=== PATIENT | male | born 1980 | race Caucasian/White ===

== ENCOUNTER 2019-08-31 18:33 | Emergency (ER) | payer BC, SELFPAY | END 2019-08-31 18:45 | disposition left against medical advice (07) | PROVIDERS: Emergency Provider Nurse Practitioner | DX: Z53.21 Procedure and treatment not carried out due to patient leaving prior to being seen by health care provider (principal) | CPT/HCPCS: 99199 ==

== ENCOUNTER 2019-08-31 18:49 | Emergency (ER) | payer BC, SELFPAY ==
[2019-08-31 18:53] VITALS: BP 140/87; PULSE 60; RESP 16; TEMP 36.8; O2SAT 99
--- NOTE | 2019-08-31 19:08 | ED.WOUNDLAC ---
HPI - Wound/Laceration General Chief Complaint: Wound/Laceration Stated Complaint: finger laceration Time Seen by Provider: 08/31/19 19:03 History of Present Illness HPI narrative: He cut off the tip of his right middle finger today while using a mandolin. Difficulty getting the bleeding controlled. Mild pain when covered. Related Data Home Medications Medication Instructions Recorded Confirmed quetiapine 25 mg tablet 25 mg PO DAILY tablet 04/22/19 Allergies Allergy/AdvReac Type Severity Reaction Status Date / Time acetaminophen AdvReac Mild VOMITING Verified 04/22/19 09:21 HYDROCODONE BIT Allergy Mild unknown Uncoded 04/22/19 09:21 Review of Systems Review of Systems: All systems reviewed & are unremarkable except as noted in HPI and below PMFSH Surgical History Surgical History History of mandibular surgery Family History Family History Father Family history of alcoholism Family history of diabetes mellitus in first degree relative Diabetes mellitus Hypertension Grandparent Depression Family history of malignant neoplasm Family history of malignant neoplasm of breast Mother Depression Family history of malignant neoplasm of breast in first degree relative Social History Social History Alcohol intake: current Gender identity (if verbalized by the patient): Male Exam Const: General: healthy appearing, no acute distress and alert Orientation/consciousness: patient oriented x3 HENMT: Head: normal to inspection Resp: Effort & Inspection: normal respiratory effort Cardio: Other: 2+ pulses Neuro: General: patient oriented x3, moves all extremities and CN's II-XI intact bilaterally Speech: normal speech Extrem: Other: 1.5 cm finger tip avulsion of distal right middle finger Course Vital Signs Vital signs: Vital Signs Temperature 36.8 C 08/31/19 18:53 Pulse Rate 60 08/31/19 18:53 Respiratory Rate 16 08/31/19 18:53 Blood Pressure 140/87 08/31/19 18:53 Pulse Oximetry 99 08/31/19 18:53 Temperature 36.8 C 08/31/19 18:53 Pulse Rate 60 08/31/19 18:53 Respiratory Rate 16 08/31/19 18:53 Blood Pressure 140/87 08/31/19 18:53 Pulse Oximetry 99 08/31/19 18:53 MDM - Wound/Laceration MDM Narrative Medical decision making narrative: Mild skin avusion. Reattachment not indicated or attempted. Tetanus up to date Discharge Plan Discharge Clinical Impression: Avulsion of finger tip Qualifiers: Encounter type: initial encounter Qualified Code(s): S61.209A - Unspecified open wound of unspecified finger without damage to nail, initial encounter Patient Disposition: Home, Self-Care Condition: Stable Instructions: Skin Avulsion (ED) Prescriptions: No Action quetiapine [Seroquel] 25 mg tablet 25 mg PO DAILY RF: 0 Interventions: Discharge Disposition Last Done: 08/31/19 19:52 IV Stop Time Documented Last Done: 08/31/19 19:52 Follow-up/Referrals: PHYSICIAN NOT ON STAFF,NONSTAFF [Primary Care Provider] - Discharge Date/Time: 08/31/19 19:54
[2019-08-31] MEDS: CELLULOSE OXIDIZED 2 x 14 INCH 1 PKT XX (19:45)
== END 2019-08-31 19:54 | disposition home or self-care (01) ==
PROVIDERS: Emergency Provider Emergency Medicine
DX: S61.212A Laceration without foreign body of right middle finger without damage to nail, initial encounter (principal); W27.4XXA Contact with kitchen utensil, initial encounter
CPT/HCPCS: 12001; 99282

== ENCOUNTER 2022-12-10 08:33 | Outpatient (CLI) | payer BC, SELFPAY ==
[2022-12-10 18:38] LABS: Alanine Aminotransferase 19 U/L (6-50); Albumin Level 4.4 g/dL (3.5-5.1); Alkaline Phosphatase 78 U/L (38-126); Anion Gap 2 mmol/L (8-16); Aspartate Amino Transferase 27 U/L (17-59); Blood Urea Nitrogen 9 mg/dL (9-20); Carbon Dioxide 31 mmol/L (22-30); Chloride 104 mmol/L (98-107); Cholesterol 230 mg/dL (0-200); Estimated Glomerular Filt Rate > 60; Glucose 104 mg/dL (65-110); HDL Direct 60 mg/dL; Potassium 4.1 mmol/L (3.4-5.0); Sodium 137 mmol/L (137-145); Triglycerides 117 mg/dL (<150)
[2022-12-10 18:49] LABS: LDL Cholesterol Direct 123 mg/dL
== END 2022-12-10 08:34 | disposition home or self-care (01) ==
LOC: ANHGOSHLAB 08:35
PROVIDERS: PCP Family Medicine; Visit Provider Family Medicine
DX: E78.5 Hyperlipidemia, unspecified (principal); E66.9 Obesity, unspecified; Z79.899 Other long term (current) drug therapy
CPT/HCPCS: 36415; 80053; 80061; 84443

== ENCOUNTER → 2023-04-09 12:27 | Outpatient (CLI) | payer BC, SELFPAY ==
--- NOTE | ~2023-04-09 | MR_ITS ---
EXAMINATION: MR brain/brain stem wo/w con DATE: 04/09/2023 13:15 INDICATION: Mass of brain. TECHNIQUE: Magnetic resonance imaging (MRI) of the brain and brainstem was performed without and with 20 mL MultiHance intravenous contrast. COMPARISON: None. FINDINGS: There is no intracranial hemorrhage, acute infarction, or abnormal intracranial mass lesion . The ventricles are normal in size. The orbits are normal. The paranasal sinuses are clear. The mast oid air cells are normal. IMPRESSION: 1. Normal brain. Reviewed, dictated and finalized at location E. MACIST MANAGER IMPRESSION: 1. Normal brain.
== END ==
PROVIDERS: PCP Family Medicine; Visit Provider Family Medicine
DX: R22.0 Localized swelling, mass and lump, head (principal)
CPT/HCPCS: 70553; A9577

== ENCOUNTER → 2023-05-14 11:46 | Outpatient (CLI) | payer BC, SELFPAY ==
--- NOTE | ~2023-05-14 | XR_ITS ---
Right Knee Technique: AP, lateral, and sunrise views were obtained. Clinical History: Medial pain Findings: There is a probable very small osseous avulsion fragment at the medial aspect of the knee, possibly related to the MCL origin. No other fracture seen. Joint spaces are preserved without degene rative or erosive change. Soft tissues are unremarkable. No joint effusion is seen. Impression: Probable small avulsion fracture the medial aspect of the knee, presumably most likely related to the MCL origin. Reviewed, dictated and finalized at location M. CAD Impression: Probable small avulsion fracture the medial aspect of the knee, presumably most likely related to the MCL origin.
== END ==
PROVIDERS: PCP Nurse Practitioner; Visit Provider Nurse Practitioner
DX: M25.561 Pain in right knee (principal)
CPT/HCPCS: 73564

== ENCOUNTER 2023-07-29 10:15 | Outpatient (CLI) | payer BC, SELFPAY ==
[2023-07-29 14:32] LABS: Alanine Aminotransferase 29 U/L (6-50); Albumin Level 4.6 g/dL (3.5-5.1); Alkaline Phosphatase 89 U/L (38-126); Anion Gap 7 mmol/L (4-12); Aspartate Amino Transferase 34 U/L (17-59); Bilirubin,Total 0.8 mg/dL (0.2-1.3); Blood Urea Nitrogen 12 mg/dL (9-20); Calcium 9.5 mg/dL (8.4-10.2); Carbon Dioxide 28 mmol/L (22-30); Chloride 102 mmol/L (98-107); Cholesterol 200 mg/dL (0-200); Estimated Glomerular Filt Rate > 60; Glucose 87 mg/dL (65-110); HDL Direct 62 mg/dL; Potassium 4.5 mmol/L (3.4-5.0); Sodium 137 mmol/L (137-145); Triglycerides 120 mg/dL (<150)
[2023-07-29 14:43] LABS: LDL Cholesterol Direct 110 mg/dL
== END 2023-07-29 10:16 | disposition home or self-care (01) ==
LOC: ANHGOSHLAB 10:17
PROVIDERS: PCP Family Medicine; Visit Provider Family Medicine
DX: E78.5 Hyperlipidemia, unspecified (principal); E66.9 Obesity, unspecified; Z79.899 Other long term (current) drug therapy
CPT/HCPCS: 36415; 80053; 80061; 84443

== ENCOUNTER 2023-12-27 08:53 | Outpatient (CLI) | payer BC, SELFPAY ==
[2023-12-27 16:34] LABS: Hematocrit 48.6 % (42.0-52.0); Hemoglobin 16.8 g/dL (14.0-18.0); Mean Corpuscular HGB Conc 34.6 g/dl (32-36); Mean Corpuscular Hemoglobin 32.2 pg (26-34); Mean Corpuscular Volume 93.3 fl (80-100); Mean Platelet Volume 10.7 fl (7.4-10.4); Platelet Count Result 251 k/mm3 (150-375); Red Blood Count 5.21 M/mm3 (4.6-6.20); Red Cell Distribution Width 11.4 % (11.5-14.5); White Blood Count 6.1 K/mm3 (4.5-10.0)
[2023-12-27 16:37] LABS: Alanine Aminotransferase 26 U/L (6-50); Albumin Level 4.3 g/dL (3.5-5.1); Alkaline Phosphatase 72 U/L (38-126); Anion Gap 5 mmol/L (4-12); Aspartate Amino Transferase 51 U/L (17-59); Blood Urea Nitrogen 10 mg/dL (9-20); Calcium 9.5 mg/dL (8.4-10.2); Carbon Dioxide 32 mmol/L (22-30); Chloride 100 mmol/L (98-107); Cholesterol 230 mg/dL (0-200); Estimated Glomerular Filt Rate > 60; Glucose 99 mg/dL (65-110); HDL Direct 59 mg/dL; Potassium 4.5 mmol/L (3.4-5.0); Sodium 137 mmol/L (137-145); Triglycerides 84 mg/dL (<150)
[2023-12-27 17:04] LABS: LDL Cholesterol Direct 128 mg/dL
== END 2023-12-27 08:54 | disposition home or self-care (01) ==
LOC: ANHGOSHLAB 08:55
PROVIDERS: PCP Family Medicine; Visit Provider Family Medicine
DX: E78.5 Hyperlipidemia, unspecified (principal); F41.9 Anxiety disorder, unspecified; Z79.899 Other long term (current) drug therapy; E66.9 Obesity, unspecified; Z12.5 Encounter for screening for malignant neoplasm of prostate
CPT/HCPCS: 36415; 80053; 80061; 84153; 84443; 85027; G0103

== ENCOUNTER 2024-03-16 18:18 | Emergency (ER) | payer BC, SELFPAY ==
--- NOTE | ~2024-03-16 | CT_ITS ---
CT soft tissue neck w con Ordering provider: Brittany Mcdonough PA-C History: 43 years Male with . R NECK/PAROTID swelling . Comparison: None. Technique: CT soft tissues neck was performed with contrast. . Automated exposure control and iterat rico reconstruction technique were employed. The dose-length product was 609.88 mGy-cm. 75 mL Omnipaqu e 350 was given IV. Findings: LOWER HEAD: The visualized brain parenchyma, optic globes/orbits and mastoids are normal. The visua lized paranasal sinuses are well aerated. SALIVARY GLANDS: Normal. THYROID: Normal. SUPRAHYOID DEEP SPACES: Cystic mass is seen just lateral to the right submandibular gland and between the gland and the sternomastoid muscle which measures 3.3 x 2.7 cm most likely necrotic lymph node. Further evaluation advised. Enlarged lymph nodes in the parapharyngeal spaces with the largest measur es 1.1 cm on the left side. CAROTID ARTERIES: Normal. JUGULAR VEINS: Normal. TONSILS: Normal. ORAL CAVITY: Partially obscured by dental amalgam but normal as visualized. PHARYNX, LARYNX AND TRACHEA: Patent and normal. No prevertebral soft tissue swelling. SUPERFICIAL SOFT TISSUES: Fat stranding is seen in the right side of the neck. THORACIC INLET/VISUALIZED UPPER CHEST: Normal. SKELETAL: Normal. IMPRESSION: Cystic mass in the right side of the of the neck between the right submandibular gland and right ster nomastoid muscle suggestive of an abscess. Further evaluation advised. Reviewed, dictated and finalized at location A. N PIPE VOICER IMPRESSION: Cystic mass in the right side of the of the neck between the right submandibula r gland and right sternomastoid muscle suggestive of an abscess. Further evalua tion advised.
[2024-03-16 18:21] VITALS: BP 137/100; PULSE 111; RESP 18; TEMP 37.1; O2SAT 97
--- NOTE | 2024-03-16 18:24 | ED.SKABFB ---
HPI - Skin/Abscess/Foreign Bdy General Chief complaint: Skin/Abscess/Foreign Body Stated complaint: neck mass Time Seen by Provider: 03/16/24 18:20 Focused HPI: Patient is a 43-year-old male who presents the ED with report of right-sided jaw swelling. Patient has history of prognathic jaw surgery for underbite around 20 years ago. Over the past 1 week, he has had swelling/pain/firmness in his R facial jaw and under jaw. States it became red over the past few days, with the redness radiating down his chest. Reports similar episode previously which he states required abx/drainage. He has an appointment with an ENT specialist on 03/23, but states the redness concerned him today. Denies difficulty breathing or swallowing. Reports pain with chewing, decreased appetite, subjective fevers. Denies dental pain, drainage in mouth. GENERAL: Well-appearing, well-nourished, and in no acute distress. HEAD: Normocephalic, atraumatic. FACE/ENT/NECK: Large area of induration, erythema, focal tenderness to palpation along R facial cheek and submandibular region, erythema tracking down anterior chest. Warm to palpation. No evidence of focal fluctuance on along upper lower right-sided gum lines. No significant tenderness along gumline months. CHEST: Clear to auscultation. ?No respiratory distress. HEART: Regular rate and rhythm.? NEURO: ?Alert and oriented x3. Patient screened in triage and initial orders placed.? ?Additional care and disposition to be based upon?diagnostic testing and treatment. Source: patient Mode of arrival: ambulatory Limitations: no limitations Related Data Home Medications ?Medication ?Instructions ?Recorded ?Confirmed ?Last Taken ?Type risperidone 3 mg tablet 3 mg PO DAILY 06/04/22 12/30/23 Unknown History vilazodone 40 mg tablet 40 mg PO DAILY 06/04/22 12/30/23 Unknown History atomoxetine 80 mg capsule mg PO 08/08/23 12/30/23 Unknown History Allergies Allergy/AdvReac Type Severity Reaction Status Date / Time HYDROCODONE BIT Allergy Mild unknown Uncoded 12/30/23 10:55 PMFSH Past Medical History Medical History Anxiety Surgical History Surgical History History of mandibular surgery 2003 Family History Family History Father Family history of alcoholism Family history of diabetes mellitus in first degree relative Diabetes mellitus Hypertension Grandparent Depression Family history of malignant neoplasm Family history of malignant neoplasm of breast Mother Depression Family history of malignant neoplasm of breast in first degree relative Social History Social History Smoking status: Former smoker Alcohol intake: current Drinks per week: 6 Substance use: current Substance use type: marijuana Other substance usage details: smoke once every couple weeks Lack of Transportation: No Lack of Food: Never True Current Housing: I Have Housing Concerned About Future Housing: No Difficulty Paying Gas/Electric Bills: No Difficulty Paying for Meds: No Currently Unemployed: No Education: Master's Degree or Higher Difficulty w/ Childcare or Family Care: No Gender identity (if verbalized by the patient): Male Course Vital Signs Vital signs: Vital Signs Temperature 98.8 F 03/16/24 18:21 Pulse Rate 111 H 03/16/24 18:21 Respiratory Rate 18 03/16/24 18:21 Blood Pressure 137/100 H 03/16/24 18:21 Pulse Oximetry 97 03/16/24 18:21 Oxygen Delivery Room Air 03/16/24 18:21 Temperature 98.8 F 03/16/24 18:21 Pulse Rate 82 03/17/24 05:39 Respiratory Rate 15 03/17/24 05:39 Blood Pressure 128/84 03/17/24 05:39 Pulse Oximetry 96 03/17/24 05:39 Oxygen Delivery Room Air 03/16/24 18:21 MDM - Skin/Abscess/Foreign Bdy MDM Narrative Medical decision making narrative: MSE by MANUEL in triage. Lab Data 03/16/24 19:10 03/16/24 19:10 Labs: Lab Results 03/16/24 Range/Units 19:10 WBC 11.0 H (4.5-10.0) K/mm3 RBC 4.82 (4.6-6.20) M/mm3 Hgb 15.0 (14.0-18.0) g/dL Hct 42.4 (42.0-52.0) % MCV 88.0 (80-100) fl MCH 31.1 (26-34) pg MCHC 35.4 (32-36) g/dl RDW 12.0 (11.5-14.5) % Plt Count 230 (150-375) k/mm3 MPV 9.9 (7.4-10.4) fl Immature Gran % (Auto) 0.4 (0-0.5) % Neut % (Auto) 71.2 (45.5-73.1) % Lymph % (Auto) 17.7 L (18.3-44.2) % [place] % (Auto) 10.3 H (2.6-8.5) % Eos % (Auto) 0.2 (0-4.4) % Baso % (Auto) 0.2 (0.2-1.2) % Lymph # (Auto) 1.95 (0.9-3.2) K/mm3 [place] # (Auto) 1.1 H (0.1-0.6) K/mm3 Eos # (Auto) 0.0 (0-0.3) K/mm3 Baso # (Auto) 0.0 (0.0-0.1) K/mm3 Abs Immat Gran (auto) 0.04 H (0.00-0.031) K/mm3 Absolute Neuts (auto) 7.9 H (1.3-6.7) K/mm3 Absolute Nucleated RBC 0.000 (0.0-0.012) K/mm3 Nucleated RBC % 0.0 (0.0-0.2) % Sodium 132 L (137-145) mmol/L Potassium 4.1 (3.4-5.0) mmol/L Chloride 100 (98-107) mmol/L Carbon Dioxide 29 (22-30) mmol/L Anion Gap 3 L (4-12) mmol/L BUN 11 (9-20) mg/dL Creatinine 1.10 (0.7-1.3) mg/dL Estim Creat Clear Calc 104 ml/min Estimated GFR > 60 (59 - ) Glucose 111 H (65-110) mg/dL Lactic Acid 0.6 L (0.7-2.0) mmol/L Calcium 9.1 (8.4-10.2) mg/dL Total Bilirubin 1.1 (0.2-1.3) mg/dL AST 20 (17-59) U/L ALT 15 (6-50) U/L Alkaline Phosphatase 82 (38-126) U/L C-Reactive Protein 4.2 H (<1.0) mg/dL Total Protein 8.0 (6.3-8.2) g/dL Albumin 4.3 (3.5-5.1) g/dL Discharge Plan Discharge Clinical Impression: Submandibular abscess Patient Disposition: Acute Care Hospital Condition: Serious Patient Language: [place] Prescriptions: No Action vilazodone 40 mg tablet 40 mg PO DAILY Rx Instructions: must administer with a meal/food risperidone 3 mg tablet 3 mg PO DAILY atomoxetine 80 mg capsule PO Follow-up/Referrals: Angelica Jaramillo DO [Primary Care Provider] -
[2024-03-16 19:18] LABS: Basophils Percent Auto 0.2 % (0.2-1.2); Eosinophils Percent Auto 0.2 % (0-4.4); Hematocrit 42.4 % (42.0-52.0); Immature Granulocyte Absolute 0.04 K/mm3 (0.00-0.031); Immature Granulocyte Percent A 0.4 % (0-0.5); Lymphocytes Absolute Auto 1.95 K/mm3 (0.9-3.2); Lymphocytes Percent Auto 17.7 % (18.3-44.2); Mean Corpuscular HGB Conc 35.4 g/dl (32-36); Mean Corpuscular Hemoglobin 31.1 pg (26-34); Mean Platelet Volume 9.9 fl (7.4-10.4); Monocytes Absolute Auto 1.1 K/mm3 (0.1-0.6); Monocytes Percent Auto 10.3 % (2.6-8.5); Neutrophils Absolute Auto 7.9 K/mm3 (1.3-6.7); Neutrophils Percent Auto 71.2 % (45.5-73.1); Platelet Count Result 230 k/mm3 (150-375); Red Blood Count 4.82 M/mm3 (4.6-6.20)
[2024-03-16 19:33] LABS: Lactic Acid Reflex 0.6 mmol/L (0.7-2.0)
[2024-03-16 19:36] LABS: Alanine Aminotransferase 15 U/L (6-50); Albumin Level 4.3 g/dL (3.5-5.1); Alkaline Phosphatase 82 U/L (38-126); Anion Gap 3 mmol/L (4-12); Aspartate Amino Transferase 20 U/L (17-59); Bilirubin,Total 1.1 mg/dL (0.2-1.3); Blood Urea Nitrogen 11 mg/dL (9-20); CRP 4.2 mg/dL (<1.0); Calcium 9.1 mg/dL (8.4-10.2); Carbon Dioxide 29 mmol/L (22-30); Chloride 100 mmol/L (98-107); Estimated CRCL calculation 104 ml/min; Estimated Glomerular Filt Rate > 60; Glucose 111 mg/dL (65-110); Potassium 4.1 mmol/L (3.4-5.0); Sodium 132 mmol/L (137-145)
[2024-03-17] MEDS: AMPICILLIN SULB 3 GM/NS 100 ML 3 GM/100 ML VIAL IVPB (04:06)
[2024-03-17 04:08] VITALS: BP 136/92; PULSE 83; RESP 15; O2SAT 95
--- NOTE | 2024-03-17 05:21 | ED.GENADULT ---
HPI - General Adult General Chief complaint: Skin/Abscess/Foreign Body Stated complaint: neck mass Time Seen by Provider: 03/16/24 18:20 Source: patient Mode of arrival: ambulatory Limitations: no limitations Related Data Home Medications ?Medication ?Instructions ?Recorded ?Confirmed ?Last Taken ?Type risperidone 3 mg tablet 3 mg PO DAILY 06/04/22 12/30/23 Unknown History vilazodone 40 mg tablet 40 mg PO DAILY 06/04/22 12/30/23 Unknown History atomoxetine 80 mg capsule mg PO 08/08/23 12/30/23 Unknown History Allergies Allergy/AdvReac Type Severity Reaction Status Date / Time HYDROCODONE BIT Allergy Mild unknown Uncoded 12/30/23 10:55 PMFSH Past Medical History Medical History Anxiety Surgical History Surgical History History of mandibular surgery 2004 Family History Family History Father Family history of alcoholism Family history of diabetes mellitus in first degree relative Diabetes mellitus Hypertension Grandparent Depression Family history of malignant neoplasm Family history of malignant neoplasm of breast Mother Depression Family history of malignant neoplasm of breast in first degree relative Social History Social History Smoking status: Former smoker Alcohol intake: current Drinks per week: 6 Substance use: current Substance use type: marijuana Other substance usage details: smoke once every couple weeks Lack of Transportation: No Lack of Food: Never True Current Housing: I Have Housing Concerned About Future Housing: No Difficulty Paying Gas/Electric Bills: No Difficulty Paying for Meds: No Currently Unemployed: No Education: Master's Degree or Higher Difficulty w/ Childcare or Family Care: No Gender identity (if verbalized by the patient): Male Exam Narrative: APPEARANCE: No apparent distress. Head: atraumatic. EYES: EOMI, NOSE: Atraumatic NECK: area swelling tenderness and fluctuance over the right neck just underneath the jaw line, no stridor, no difficulty speaking or voice changes RESPIRATORY: No increased rate of breathing CARDIOVASCULAR: RRR, ABDOMINAL: Non-distended MUSCULOSKELETAl: No obvious deformities NEURO: Alert. Moving 4/4 extremities SKIN:: Warm, dry. Normal color PSYCHIATRIC: Normal affect Course Vital Signs Vital signs: Vital Signs Temperature 98.8 F 03/16/24 18:21 Pulse Rate 111 H 03/16/24 18:21 Respiratory Rate 18 03/16/24 18:21 Blood Pressure 137/100 H 03/16/24 18:21 Pulse Oximetry 97 03/16/24 18:21 Oxygen Delivery Room Air 03/16/24 18:21 Temperature 98.8 F 03/16/24 18:21 Pulse Rate 83 03/17/24 04:08 Respiratory Rate 15 03/17/24 04:08 Blood Pressure 136/92 H 03/17/24 04:08 Pulse Oximetry 95 03/17/24 04:08 Oxygen Delivery Room Air 03/16/24 18:21 Medical Decision Making MDM Narrative Medical decision making narrative: -Course: 43-year-old male presenting with a large submandibular abscess. Given a dose of ampicillin sulbactam. Case was discussed with Dr. Hudson of the ENT service at [facility]. Patient be transferred to [facility] emergency department via private vehicle. Accepted in the ED by Dr. Khoury. Vital Signs Vital Signs: Vital Signs Temperature 98.8 F 03/16/24 18:21 Pulse Rate 111 H 03/16/24 18:21 Respiratory Rate 18 03/16/24 18:21 Blood Pressure 137/100 H 03/16/24 18:21 Pulse Oximetry 97 03/16/24 18:21 Oxygen Delivery Room Air 03/16/24 18:21 Temperature 98.8 F 03/16/24 18:21 Pulse Rate 83 03/17/24 04:08 Respiratory Rate 15 03/17/24 04:08 Blood Pressure 136/92 H 03/17/24 04:08 Pulse Oximetry 95 03/17/24 04:08 Oxygen Delivery Room Air 03/16/24 18:21 Lab Data 03/16/24 19:10 03/16/24 19:10 Labs: Lab Results 03/16/24 Range/Units 19:10 WBC 11.0 H (4.5-10.0) K/mm3 RBC 4.82 (4.6-6.20) M/mm3 Hgb 15.0 (14.0-18.0) g/dL Hct 42.4 (42.0-52.0) % MCV 88.0 (80-100) fl MCH 31.1 (26-34) pg MCHC 35.4 (32-36) g/dl RDW 12.0 (11.5-14.5) % Plt Count 230 (150-375) k/mm3 MPV 9.9 (7.4-10.4) fl Immature Gran % (Auto) 0.4 (0-0.5) % Neut % (Auto) 71.2 (45.5-73.1) % Lymph % (Auto) 17.7 L (18.3-44.2) % [place] % (Auto) 10.3 H (2.6-8.5) % Eos % (Auto) 0.2 (0-4.4) % Baso % (Auto) 0.2 (0.2-1.2) % Lymph # (Auto) 1.95 (0.9-3.2) K/mm3 [place] # (Auto) 1.1 H (0.1-0.6) K/mm3 Eos # (Auto) 0.0 (0-0.3) K/mm3 Baso # (Auto) 0.0 (0.0-0.1) K/mm3 Abs Immat Gran (auto) 0.04 H (0.00-0.031) K/mm3 Absolute Neuts (auto) 7.9 H (1.3-6.7) K/mm3 Absolute Nucleated RBC 0.000 (0.0-0.012) K/mm3 Nucleated RBC % 0.0 (0.0-0.2) % Sodium 132 L (137-145) mmol/L Potassium 4.1 (3.4-5.0) mmol/L Chloride 100 (98-107) mmol/L Carbon Dioxide 29 (22-30) mmol/L Anion Gap 3 L (4-12) mmol/L BUN 11 (9-20) mg/dL Creatinine 1.10 (0.7-1.3) mg/dL Estim Creat Clear Calc 104 ml/min Estimated GFR > 60 (59 - ) Glucose 111 H (65-110) mg/dL Lactic Acid 0.6 L (0.7-2.0) mmol/L Calcium 9.1 (8.4-10.2) mg/dL Total Bilirubin 1.1 (0.2-1.3) mg/dL AST 20 (17-59) U/L ALT 15 (6-50) U/L Alkaline Phosphatase 82 (38-126) U/L C-Reactive Protein 4.2 H (<1.0) mg/dL Total Protein 8.0 (6.3-8.2) g/dL Albumin 4.3 (3.5-5.1) g/dL Discharge Plan Discharge Clinical Impression: Submandibular abscess Patient Disposition: Acute Care Hospital Condition: Serious Patient Language: [place] Prescriptions: No Action vilazodone 40 mg tablet 40 mg PO DAILY Rx Instructions: must administer with a meal/food risperidone 3 mg tablet 3 mg PO DAILY atomoxetine 80 mg capsule PO Follow-up/Referrals: Angelica Jaramillo DO [Primary Care Provider] -
[2024-03-17 05:39] VITALS: BP 128/84; PULSE 82; RESP 15; O2SAT 96
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
--- OUTSIDE RECORDS SUMMARY | 2024-03-24 03:15 | XMS_ITS ---
Author Organization [facility] [employer] Address [address] [place] [address] Care Team Providers Care [employer] Architect Name Role Phone Angelica Jaramillo DO Primary Care Provider Unavail Whitney Garcia Unavailable [phone] Allergies No Known Allergies REASON FOR VISIT follow up medication management Medications Medication SIG (Take, Route, Frequency, Duration) Notes Start Date End Date Status Concerta 27 MG 1 tablet in the morning Orally Once a day for 30 days 10/04/2023 11/03/2023 Active Meloxicam 15 MG Oral 08/02/2023 Act rico Atomoxetine HCl 80 MG 1 capsule in the morning Oral Once a day for 30 days 08/02/2023 12/03/2023 Active risperiDONE 3 MG 1 tablet at bedtime Oral Once a day for 30 days 08/02/2023 Active Vilazodone HCl 40 MG 1 tablet with food Oral Once a day for 30 days 08/02/2023 Active QUEtiapine Fumarate ER 300 MG Oral 08/02/2023 Not-Taking Social History Tobacco Use: Social History Observation Description Date Details (start date - stop date) Former Smoker NA - NA Sex Assigned At : Social History Observation Description Sex Assigned At Male Tobacco Control (Standard) Question Answer Notes Tobacco use: Former smoker How long has it been since you last smoked? Grea ter than 10 years Section Notes: Social History Substance Use Do you or have you ever smoked tobacco?: Former smoker How much tobacco do you smoke?: None Do you or have you ever used e-cigarettes or vape?: Former user of electronic cigarettes What was the date of your most recent tobacco screening?: 05/27/2023 What is your level of alcohol consumption?: None How many years have you consumed alcohol?: 21 Do you use any illicit or recreational drugs?: No Which illicit or recreational drugs have you used?: Marijuana, Extacy, Opium, Cocaine, Daja Have you used IV drugs?: No What is your level of caffeine consumption?: Heavy Education and Occupation What is the highest grade or level of school you have completed or the highest degree you have received?: Master's degree (e.g., MA, MS, Noemy, 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, 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, 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) Are you currently employed?: Yes 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) Marriage and Sexuality What is your relationship status?: Are you sexually active?: No Do you use protection during sex?: No How many children do you have?: 1 Home and Environment Are there any guns present in your home?: No Advance Directive Do you have an advance directive?: No Do you have a medical power of assistant prosecuting attorney?: No Vital Signs Blood pressure systolic 131 mm Hg 10/04/19 24 Blood pressure diastolic 87 mm Hg 024 Heart Rate 89 /min 10/04/2023 Height 72.00 in 10/04/2023 Weight 255 lbs 10/04/2023 BMI 34.58 kg/m2 10/04/2023 Height-cm 182.88 cm 10/04/2023 Weight-kg 115.67 kg 10/04/2023 Encounters Encounter Location Date Provider Diagnosis [facility] [employer] [place] [address] [address] 10/04/2023 Whitney Bustamante Attention-deficit hyperactivity disorder, combined type F90.2 ; Generalized anxiety disorder F41.1 ; Bipolar disorder, unspecified F31.9 and History of alcohol abuse F10.11 Assessments Encounter Date Diagnosis (ICD Code) Assessment Notes Treatment Notes Treatment Clinical Notes Section Notes 10/04/2023 Attention-deficit hyperactivity disorder, combined type (ICD-10 - F90.2) start concerta 27mg qam decrease caffeine cont atomoxetine 80mg qam-monitor mood stability cont avoid cannabis/alcohol if improvement, may consider decrease atomoxetine or viibryd (discussed in past) to minimize meds reports past stimulants for anxiety/mind blanking, improve social and mood. but states adderall ER did help at work with attention, but didn't like with coffee. focalin was more take before a social event and that helped with social in evening but would be hard to fall asleep and then also a crash after, and not sure if help work/focus as didn't take then. discuss stimulant not generally a social event, evening medication. says it calms mind, think more clearly, able to engage better. adderall was good am and afternoon, more steady but wear off evening. can try an XR formulation for all day see if covers into evening and also help social anxiety. discuss prefer to avoid IR and why.. denied C/I to stimulant (other than past substance/dave tor, denies current ETOH, cannabis, substance; negative uds june). review r/b/se, including mood instability-mo nitor closely for lyric sx, addiction, etc discuss AA and [facility] for support recommend counseling f/u in 1 month, earlier if concerns notes: -BO/AHUJA testing supported ADHD combined dx -Diff: consider if undiagnosed autism may play a role in sx; have discussed 10/04/2023 Generalized anxiety disorder (ICD-10 - F41.1) cont vilazodone 40mg daily, take with food recommend counseling 10/04/2023 Bipolar disorder, unspecified (ICD-10 - F31.9) long-term dx, rule out MDD with substance and/or ADHD cont risperidone 3mg qhs 10/04/2023 History of alcohol abuse (ICD-10 - F10.11) no usehx intermittent problematic userecommend continue to abstain from alcohol 10/04/2023 Other Methylphenidate Extended Release Oral Tablet (METHYLPHENIDATE SUSTAINED-ACTION, OSMOTIC - ORAL) material was published Plan Of Treatment Medication Medication Name Sig Start Date Stop Date Notes Concerta 27 MG 1 tablet in the morn ing Orally Once a day for 30 days 10/04/2023 11/03/2023 Atomoxetine HCl 80 MG 1 capsule in the m orning Oral Once a day for 30 days 08/02/2023 12/03/2023 risperiDONE 3 MG 1 tablet at bedtime Oral Once a day for 30 days 08/02/2023 Vilazodone HCl 40 MG 1 tablet with food Oral Once a day for 30 days 08/02/2023 Treatment Notes Assessment Notes Attention-deficit hyperactiv ity disorder, combined type start concerta 27mg qam decrease caffeine cont atomoxetine 80mg qam-monitor mood stability cont avoid cannabis/alcohol if improvement, may consider decrease atomoxetine or viibryd (discussed in past) to minimize meds Generalized anxiety disorder cont vilazodone 40mg daily, take with food recommend counseling Bipolar disorder, unspecified long-term dx, rule out MDD with substance and/or ADHD cont risperidone 3mg qhs History of alcohol abuse no usehx interm ittent problematic userecommend continue to abstain from alcohol Other Methylphenidate Exte nded Release Oral Tablet (METHYLPHENIDATE SUSTAINED-ACTION, OSMOTIC - ORAL) material was published Next Appt Details Follow Up: 1 month, Reason: Provider Name:Radha engel, 03/27/2024 11:00:00 AM, [address], [facility] [address], [place], [address], Progress Notes * JAMES VILLANUEVA [place]:1 (42 yo M)Acc No.[id number]:10/04/2023 Patient:?[facility] Provider:?TIBURCIO POOLE :1980???Age:42 Y???Sex:Male Giovanny e:10/04/2023 Address:[address] [place], [place] [id number] Pcp:Angelica Jaramillo DO Subjective: * Chief Complaints: * ???1. Follow up medication m anagement. * HPI: ???History of Presenting Problem:? 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 hx alcohol misuse and cannabis. no med change last visit. maybe sexual side effects, had before with seroquel and the switch helped it, but no better or worse lately.? things are good. 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 denies depression, SI. anxiety is good. other than social anxiety, since I used to drink for that so now avoiding friends. in past took the focalin so would amp me up and let me talk to people. but would have headache next day. Sleeping ok, sometimes wake up too early. Denies lyric, psychosis.?Still applying to?other roles at work, to try to get into office instead of home. substance: caffeine high-trying to cut back former smoker ETOH: none since 03/18 cannabis: none since 03/18. ???General Follow Up:? ongoing notes: past meds: seroquel-too tired am;?xanax didn't like;?adderall, focalin Psychotherapy: never done Trauma/abuse hx: denied INITIAL SUBSTANCE USE HX: Caffeine: 4 c coffee in am Cigarette/vape: former smoker ETOH: none since March 18, was every day bottle of wine for the months before that. have hx of off and on issues since age 18. Quit months/years at a time. note: mother and father alcohol hx Cannabis: gave up Mar 19 was daily/multiple times a day/$30/day. smoked age 18- 27 then quit 12 yrs until they legalized it Other drug use: only in 20s, none since: Ecstasy-weekly for a while, Opium, Cocaine, Daja few times/yr Treatment hx: Denied facility tx, went to AA a few times that's it. ADHD-see under ADHD tab Anxiety hx: started around my 30s. used to take focalin for social anxiety/can't talk. My thinks I'm constantly worrying that the worst possible thing will happen. hard to relax. ruminates. can be issue at bedtime but has not been issue since on risperdal and before that seroquel. Panic attacks: denied Depression hx: have had in past, severe. would have an episode 6-8x/yr that would last a few days. now not really with meds. can get mild at times, some helpless, overwhelmed feelings, very spaced out and doesn't last more than a day. I just deal with it. Denied SI, says has never been a problem. when depressed in past can be irritable, restless, lack motivation, helpless, bad about self-like failure. Denied hx of psychiatric hospitalizations, suicide attempts or self-injury. Lyric hx: before meds, would tend to take on a lot of tasks, start a lot of projects. and there was time I didn't have to sleep as much. better self esteem during these times. It will be like a week and then several months back down to normal and then another week up. no cheating, reckless driving, or debt. I get in moods angry, tense for no reason for a few hours. That happens sporadically once or twice a week. -consider if accurate memory of past sx etc, has been on mood stabilizing medication for years-family hx, grandmother-unclear: but consider long-term medication affecting ongoing sx and hx substance use; has family hx and historical dx denied hx of psychosis bipolar, vs ADHD, vs substance, etc. ???Attention deficit / hyperactivity disorder:? ADHD hx/notes: Denied past dx of ADHD. says past stimulant scripts for social anxiety/mind blanking. I avoid going places, seeing friends, don't want to be social. Afraid I'll be a shut in. I hate the awkwardness. With stimulants more up mood, talkative, but not manic. consider if autism-says my thinks I'm on the spectrum-says it constantly? ADHD inattention: endorsed poor ability to give close attention to details;?has difficulty sustaining attention in tasks;?makes careless mistakes at work;?does not listen when spoken to directly;?does not follow through on instructions;?fails to finish work;?has difficulty organizing tasks and activities;?reluctant to engage in tasks that require sustained mental effort;?loses things necessary for tasks or activities;?easily distracted by extraneous stimuli; Hyperactivity:?no excessive talking; does not run/move in inappropriate situations; no difficulty with quiet tasks/activities;?Often fidgets with or taps hands or feet, or squirms in seat.?(when not on bipolar medication);?Often interrupts or intrudes on others (e.g., butts into conversations or games).?Context:?lack of productivity at work;?unnecessary arguments Completed BO/AHUJA testing on 06/27/23, valid, results and self rating support considering dx of ADHD combined hx: reports past stimulants for anxiety/mind blanking (not past ADHD dx), improve social and mood. but states adderall ER did help at work with attention, but didn't like with coffee. focalin was more take before a social event and that helped with social in evening but would be hard to fall asleep and then also a crash after, and not sure if help work/focus as didn't take then. see 07/04/23 note for hx/sx summary. * ROS:?Psychiatric:?Comments?See HPI for details.? * Medical History:?Problems: A ttention deficit hyperactivity disorder, Attention deficit hyperactivity disorder, combined type, Bipolar disorder, Generalized anxiety disorder, History of alcohol abuse, ,. * Surgical History:?Other jaw 04/18/2002. * Hospitalization/Major Diagno stic Procedure:?Denies Past Hospitalization. * Family History:?Father: Alco hol abuse .?Mother: Depressive disorder , Alcohol abuse .?Paternal Grandmother: Bipolar disorder .? * Social History:?Tobacco Use:?Tobacco Control (Standard)?Tobacco use:?Former smoker,?How long has it been since you last smoked??Greater than 10 years.?Migrated Social History:?Migrated Social History: Alcohol Intake: None 05/27/2023,Tobacco Years: Former smoker 05/27/2023. ???Social History Substance Use Do you or have you ever smoked tobacco?: Former smoker How much tobacco do you smoke?: None Do you or have you ever used e-cigarettes or vape?: Former user of electronic cigarettes What was the date of your most recent tobacco screening?: 05/27/2023 What is your level of alcohol consumption?: None How many years have you consumed alcohol?: 21 Do you use any illicit or recreational drugs?: No Which illicit or recreational drugs have you used?: Marijuana, Extacy, Opium, Cocaine, Daja Have you used IV drugs?: No What is your level of caffeine consumption?: Heavy Education and Occupation What is the highest grade or level of school you have completed or the highest degree you have received?: Master's degree (e.g., MA, MS, 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 * Medications:?Taking Meloxica m 15 MG Tablet Oral , Taking risperiDONE 3 MG Tablet Oral , Taking Atomoxetine HCl 80 MG Capsule Oral , Taking Vilazodone HCl 40 MG Tablet Oral , Not-Taking QUEtiapine Fumarate ER 300 MG Tablet Extended Release 24 Hour Oral , Medication List reviewed and reconciled with the patient * Allergies:?N.K.D.A. Objective: * Vitals:?BP:131/87mm Hg, HR:8 9/min, Wt:255lbs, Wt-k.67 kg, Ht: 72.00 in, Ht-cm: 182.88 cm, BMI:34.58Index, Body Surface Area: 2.42. * Examination: ???Psychiatry: ?Appearance:?Appearance: alert,well-groomed, clean, appears well rested. No acute physical distress.?Behavior: eye contactgood, cooperative, pleasant.?Abnormal body movements:?none.?Affect / mood:?euthymic, social anxiety.?Attention:?normal in conversation.?Attitude:?cooperative.?Suicidal ideation:?none.?Memory status:?no impairment noted.?Degree of awareness of surroundings:?within normal limits.?Delusions:?no.?Hallucinations:?no.?Insight:?aware of psychiatric problems.?Intellectual functioning:?no impairment noted.?Judgement:?intact.?Orientation:?awake, alert and oriented x 3.?Perceptual disorders:?no perceptual disorder noted.?Psychomotor activity:?within normal range.?Speech / language:?appropriate pitch/modulation, clear and coherent, normal rate, volume, and articulation (RVR), proper grammar used.?Thought content:?appropriate.?Thought process:?intact.? Assessment: * Assessment: 1.?Attention-deficit hyperac tivity disorder, combined type - F90.2 (Primary)???2.?Generalized anxiety disorder - F41.1???3.?Bipolar disorder, unspecified - F31.9???4.?History of alcohol abuse - F10.11??? Plan: * Treatment: 2.?Generalized anxiety disor lilian? Refill Vilazodone HCl Tablet, 40 MG, 1 tablet with food, Oral, Once a day, 30 days, 30 Tablet, Refills 1.?? Notes: cont vilazodone 40mg daily, take with food recommend counseling?? 3.?Bipolar disorder, unspeci fied? Refill risperiDONE Tablet, 3 MG, 1 tablet at bedtime, Oral, Once a day, 30 days, 30 Tablet, Refills 1.?? Notes: long-term dx, rule out MDD with substance and/or ADHD cont risperidone 3mg qhs?? 4.?History of alcohol abuse? Notes: no usehx intermittent problematic userecommend continue to abstain from alcohol?? 5.?Others? Notes: Methylphenidate Extended Release Oral Tablet (METHYLPHENIDATE SUSTAINED-ACTION, OSMOTIC - ORAL) material was published?? * Follow Up:?1 month * Billing Information: * Visit Code:? 50057 OFFICE OUTPATIENT VISIT 25 MINUTES DETAILED HISTORY AND EXAM/MODERATE MEDICAL DECISION MAKING. * Procedure Codes:? * Sign off status: Completed true * Provider:?TIBURCIO POOLE Date:? 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 hx alcohol misuse and cannabis. no med change last visit. maybe sexual side effects, had before with seroquel and the switch helped it, but no better or worse lately. things are good. Still more manageable at work, but is still hard, have co-workers that can be second set of eyes another perspective. 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 denies depression, SI. anxiety is good. other than social anxiety, since I used to drink for that so now avoiding friends. in past took the focalin so would amp me up and let me talk to people. but would have headache next day. Sleeping ok, sometimes wake up too early. Denies lyric, psychosis. Still applying to other roles at work, to try to get into office instead of home. substance: caffeine high-trying to cut back former smoker ETOH: none since 03/18 cannabis: none since 03/18 Examination Category Sub-Category Detail Notes Category Not es Psychiatry Appearance: Appearance: alert, well-groomed, clean, appears well rested. No acute physical distress. Behavior: eye contact good, cooperative, pleasant Attitude: cooperative Psychomotor activity: within normal rang e Abnormal body movements: none Attention: normal in conversati on Degree of awareness of surroundings: wit hin normal limits Orientation: awake, alert and dilip ented x 3 Affect / mood: euthymic, social anx iety Speech / language: appropriate pitch/mo dulation, clear and coherent, normal rate, volume, and articulation (RVR), proper grammar used Insight: aware of psychiatric problems Judgement: intact Thought process: intact Thought content: appropriate Perceptual disorders: no perceptual diso rder noted Suicidal ideation: none Intellectual functioning: no impairment noted Memory status: no impairment noted Delusions: no Hallucinations: no
--- OUTSIDE RECORDS SUMMARY | 2024-03-24 03:15 | XMS_ITS | Patient Health Record ---
Author Organization [facility] As [employer] Address [facility] [address] [facility] [address] [place] [address] Care Team Providers Care Signal Mechanic Name Role Phone Khadrafannyenrike Claudia MARTINEZna Primary Care Provider Unavailab Richie Villa Unavailable [phone] DiannaJeanet Unavailable [phone] Migration, Provider Unavailable Unavailable Allergies No Known Allergies Results Component Value Reference Range Notes DRUG CONFIRMATION, URINE Reviewed date:05/27/2023 12:00:00 AM Interpretation: Performing Lab: Notes/Report: DRUG SCREEN, 14 DRUGS (DETEC TIMED), URINE Reviewed date:06/27/2023 12:00:00 AM Interpretation: Performing Lab: Notes/Report: Amphetamine negative Barbiturates negative Benzodiazipine negative Buprenorphine negative Cocaine negative MDMA/Ectasy negative Methadone negative Methamphetamine negative Morphine negative Oxycodone negative Phenocyclidine negative THC negative UDT Reviewed date:01/10/2024 12:33:36 PM Interpretation: Performing Lab: Notes/Report: THC NEG 0 - 50 ng/ml Cocaine NEG 0 - 300 ng/ml Amphetamine NEG 0 - 1000 ng/ml Buprenorphine (BUP) NEG 0 - 10 ng/ml Oxazepam (BZO) NEG 0 - 300 ng/ml Methamphetamine (MET) NEG 0 - 1000 ng/ml Methylenedioxymethamphetamine (MDMA) NEG 0 - 500 ng/ml Morphine (MOP 300/[id number]) NEG 0 - 300 ng/ml Methadone (MTD) NEG 0 - 300 ng/ml Oxycodone NEG 0 - 300 ng/ml DRUG SCREEN, 14 DRUGS (DETEC TIMED), URINE Reviewed date:06/12/2023 12:00:00 AM Interpretation: Performing Lab: Notes/Report: Reason For Referral No Information Medications Medication SIG (Take, Route, Frequency, Duration) Notes Start Date End Date Status Vilazodone HCl 40 MG 1 tablet with food Oral Once a day for 30 days Active Methylphenidate HCl ER (OSM) 27 MG 1 tablet in the morning Oral Once a day for 30 days 01/10/2024 Active Meloxicam 15 MG Oral 08/02/2023 Act rico risperiDONE 3 MG 1 tablet at bedtime Oral Once a day for 30 days Active Social History Tobacco Use: Social History Observation [...] Master's degree (e.g., MA, MS, Noemy, MEd, EX[employer]PLATE [employer]KER, ISHMAEL) Are you currently employed?: Yes 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) Marriage and Sexuality What is your relationship status?: Are you sexually active?: No Do you use protection during sex?: No How many children do you have?: 1 Home and Environment Are there any guns present in your home?: No Advance Directive Do you have an advance directive?: No Do you have a medical power of staff attorney?: No Social History Substance Use Do you or [...] degree you have received?: Master's degree (e.g., TAISHA, , Noemy, MEd, EXTR[employer] TEMPLATE MAKER, ISHMAEL) Are you currently employed?: Yes 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) Marriage and Sexuality What is your relationship status?: Are you sexually active?: No Do you use protection during sex?: No How many children do you have?: 1 Home and Environment Are there any guns present in your home?: No Advance Directive Do you have an advance directive?: No Do you have a medical power of staff attorney?: No Social History Substance Use Do you or [...] degree you have received?: Master's degree (e.g., TAISHA, MS, Noemy, MEd, EXTRUSION DIE TEMPLATE MAKER, ISHMAEL) Are you currently employed?: Yes 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) Marriage and Sexuality What is your relationship status?: Are you sexually active?: No Do you use protection during sex?: No How many children do you have?: 1 Home and Environment Are there any guns present in your home?: No Advance Directive Do you have an advance directive?: No Do you have a medical power of staff attorney?: No Social History Substance Use Do you or [...] Master's degree (e.g., MA, MS, Noemy, MEd, EXTRUSION DIE TEMPLATE MAKER, ISHMAEL) Are you currently employed?: Yes 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) Marriage and Sexuality What is your relationship status?: Are you sexually active?: No Do you use protection during sex?: No How many children do you have?: 1 Home and Environment Are there any guns present in your home?: No Advance Directive Do you have an advance directive?: No Do you have a medical power of staff attorney?: No Problems Problem Type SNOMED Code ICD Code Onset Dates Problem Status W/U Status Risk Notes Problem Bipolar disorder (47718047) Bipolar disorder, unspecified (F31.9) 08/02/19 Active confirmed Problem Generalized anxiety disorder (24660598) Generalized anxiety disorder (F41.1) 08/02/19 24 Active confirmed Problem Attention deficit hyperactivity disorder, combined type (74386627) Attention-deficit hyperactivity disorder, combined type (F90.2) 08/02/19 24 Active confirmed Problem History of alcohol abuse (887399173) History of alcohol abuse (F10.11) Active confirmed Vital Signs Heart Rate 96 /min 01/10/2024 Height-cm 182.88 cm 01/10/2024 Blood pressure diastolic 83 mm Hg 01/10/2024 Weight-kg 115.58 kg 01/10/2024 Height 72.00 in 01/10/2024 Blood pressure systolic 126 mm Hg 01/10/2024 Weight 254.8 lbs 01/10/2024 BMI 34.55 kg/m2 01/10/2024 Encounters Encounter Location Date Provider Diagnosis [place] [id number] [facility] [address] [address] 05/27/2023 Whitneymatthew Bustamante Bipolar disorder, unspecified F31.9 ; Alcohol abuse, uncomplicated F10.10 ; Generalized anxiety disorder F41.1 and Attention-deficit hyperactivity disorder, unspecified type F90.[address] [address] 06/27/2023 Richie Burden Attention-deficit hyperactivity disorder, unspecified type F90.[address] [address] 07/04/2023 Whitney Wolrobbin Attention-deficit hyperactivity disorder, combined type F90.2 ; Alcohol abuse, uncomplicated F10.10 ; Generalized anxiety disorder F41.1 and Bipolar disorder, unspecified F31.9 [facility] [employer] [place] [address] [facility] [address] [address] 08/02/2023 Whitney Dianna Attention-deficit hyperactivity disorder, combined type F90.2 ; Generalized anxiety disorder F41.1 ; Alcohol abuse, uncomplicated F10.10 and Bipolar disorder, unspecified F31.9 [place] [address] [facility] [address] [address] 08/27/2023 Whitney Wolrobbin Attention-deficit hyperactivity disorder, combined type F90.2 ; Generalized anxiety disorder F41.1 ; Bipolar disorder, unspecified F31.9 and History of alcohol abuse F10.11 [facility] [employer] [place] [address] [address] 10/04/2023 Whitney Wolosrudyk Attention-deficit hyperactivity disorder, combined type F90.2 ; Generalized anxiety disorder F41.1 ; Bipolar disorder, unspecified F31.9 and History of alcohol abuse F10.11 [facility] [employer] [place] [address] [address] 11/08/2023 Whitney Wolosnavarro Attention-deficit hyperactivity disorder, combined type F90.2 ; Generalized anxiety disorder F41.1 ; Bipolar disorder, unspecified F31.9 and History of alcohol abuse F10.11 [facility] [employer] [facility] [address] [facility] [address] [address] 01/10/2024 Whitney Bustamante Attention-deficit hyperactivity disorder, combined type F90.2 ; Generalized anxiety disorder F41.1 ; Bipolar disorder, unspecified F31.9 and History of alcohol abuse F10.11 [facility] [employer] [facility] [address] [address] 05/08/2023 Provider Migration [facility] [employer] [facility] [address] [address] 05/30/2023 Provider Migration [facility] [employer] [facility] [address] [place] [address] [address] [address] 07/19/2023 Provider Migration [facility] [employer] [place] [id number] [facility] [address] [address] 08/03/2023 Provider Migration [facility] [employer] [address] [address] 08/04/2023 Provider Migration Assessments Encounter Date Diagnosis (ICD Code) Assessment Notes Treatment Notes Treatment Clinical Notes Section Notes 08/27/2023 Attention-defici t hyperactivity disorder, combined type (ICD-10 - F90.2) cont atomoxetine 80mg qam-monitor mood stability cont avoid cannabis/alcohol discuss goal making, starting with 1 thing vs overwhelm by many. He set goal to fix the cabinet above the fridge by next appt. does not need refills as sent adequate last visit tolerating and having some improvement with atomoxetine. Discuss options, has only been on dose 3.5 wks, shared decision to continue at current dose for now and see if additional improvement. education on medication and treatment couse f/u in 1 month, earlier if concerns notes: -may consider decrease viibryd in future, depending on response, side effects etc; consider bipolar d/o, minimize activation risk if atomoxetine is more helpful -BO/AHUJA testing supported combined dx 08/27/2023 Generalized anxiety disorder (ICD-10 - F41.1) cont vilazodone 40mg daily, take with food recommend counseling 10/04/2023 Attention-defici t hyperactivity disorder, combined type (ICD-10 - F90.2) [...] denied C/I to stimulant (other than past substance/monit or, denies current ETOH, cannabis, substance; negative uds june). review r/b/se, including mood instability-mon itor closely for lyric sx, addiction, etc discuss AA and smart recovery for support recommend counseling f/u in 1 month, earlier if concerns notes: -BO/AHUJA testing supported ADHD combined dx -Diff: consider if undiagnosed autism may play a role in sx; have discussed 05/27/2023 Alcohol abuse, uncomplicated (ICD-10 - F10.10) 05/27/2023 Bipolar disorder, unspecified (ICD-10 - F31.9) 05/27/2023 Generalized anxiety disorder (ICD-10 - F41.1) 05/27/2023 Attention-defici t hyperactivity disorder, unspecified type (ICD-10 - F90.9) 06/27/2023 Attention-defici t hyperactivity disorder, unspecified type (ICD-10 - F90.9) 07/04/2023 Alcohol abuse, uncomplicated (ICD-10 - F10.10) 07/04/2023 Bipolar disorder, unspecified (ICD-10 - F31.9) 07/04/2023 Generalized anxiety disorder (ICD-10 - F41.1) 07/04/2023 Attention-defici t hyperactivity disorder, combined type (ICD-10 - F90.2) 08/02/2023 Alcohol abuse, uncomplicated (ICD-10 - F10.10) 08/02/2023 Bipolar disorder, unspecified (ICD-10 - F31.9) 08/02/2023 Generalized anxiety disorder (ICD-10 - F41.1) 08/02/2023 Attention-defici t hyperactivity disorder, combined type (ICD-10 - F90.2) 11/08/2023 Attention-defici t hyperactivity disorder, combined type (ICD-10 - F90.2) decrease atomoxetine to 40mg qam x1 week then stop cont methylphenidate ER 27mg qam (call/portal 3-5 days before due for refill) decrease caffeine cont avoid cannabis/alcohol improvement with concerta, wanes in afternoon, discuss option to increase cautiously, he wants to keep as is, sit with this dose awhile , but would like to decrease atomoxetine. review r/b/se of meds have recommended counseling f/u 2 months, earlier if concerns notes: -BO/AHUJA testing supported ADHD combined dx -Diff: consider if undiagnosed autism may play a role in sx; have discussed 01/10/2024 Attention-defici t hyperactivity disorder, combined type (ICD-10 - F90.2) cont methylphenidate ER 27mg qam monitor pulse at home, taught how, keep log, check in am before meds and then later in day, a few times a week, bring to next appt. minimize caffeine cont avoid cannabis/alcohol UDS: neg, does not test methylphenidate , send for conf, reports did take stim today tolerated stopping atomoxetine. afternoon concerta not as effective, consider increase. Though pulse has been increasing particularly if look back to June-though that may have been low reading, and today also sick. Discuss monitor pulse at home. do this prior to consider increase/change for better afternoon coverage. Will view log and recheck pulse/BP next visit. f/u 1 month, earlier if concerns -discussed transition to new provider as I am leaving the practice after this month notes: -BO/AHUJA testing supported ADHD combined dx -Diff: consider if undiagnosed autism may play a role in sx; have discussed 01/10/2024 Generalized anxiety disorder (ICD-10 - F41.1) cont vilazodone 40mg daily, take with food recommend counseling 08/27/2023 Bipolar disorder, unspecified (ICD-10 - F31.9) long-term dx, rule out MDD with substance and/or ADHD cont risperidone 3mg qhs dx: bipolar hx dx, rule out MDD; GADDiff: ADHD; consider if autism may play a rolemonitor: ETOH-hx misuse, THC/cannabis recent quit; remote other substance use 11/08/2023 Generalized anxiety disorder (ICD-10 - F41.1) cont vilazodone 40mg daily, take with food recommend counseling 10/04/2023 Generalized anxiety disorder (ICD-10 - F41.1) cont vilazodone 40mg daily, take with food recommend counseling 08/27/2023 History of alcohol abuse (ICD-10 - F10.11) no usehx intermittent problematic userecommend continue to abstain from alcohol 10/04/2023 Bipolar disorder, unspecified (ICD-10 - F31.9) long-term dx, rule out MDD with substance and/or ADHD cont risperidone 3mg qhs 11/08/2023 Bipolar disorder, unspecified (ICD-10 - F31.9) cont risperidone 3mg qhs long-term dx, rule out MDD with substance and/or ADHD 01/10/2024 Bipolar disorder, unspecified (ICD-10 - F31.9) cont risperidone 3mg qhs long-term dx, rule out MDD with substance and/or ADHD 11/08/2023 History of alcohol abuse (ICD-10 - F10.11) no usehx intermittent problematic userecommend continue to abstain from alcohol is looking into [facility] program 01/10/2024 History of alcohol abuse (ICD-10 - F10.11) no usehx intermittent problematic userecommend continue to abstain from alcohol is attending [facility] meetings 10/04/2023 History of alcohol abuse (ICD-10 - F10.11) no usehx intermittent problematic userecommend continue to abstain from alcohol 08/27/2023 Other 10/04/2023 Other Methylphenidate Extended Release Oral Tablet (METHYLPHENIDATE SUSTAINED-ACTION, OSMOTIC - ORAL) material was published Plan Of Treatment Next Appt Details Provider Name:Radha engel, 03/27/2024 11:00:00 AM, [address] [facility] [address], [facility] [address], [place], [address], Insurance Providers Payer Name Payer Address Payer Phone Subscriber Number Group Number Insured Name Patient Relationship to Insured Coverage Start Date Coverage End Date [facility] [address] [place] [address] [id number] JAMES VILLANUEVA Self - patient is the insured Medical (General) History Medical History History ICD Code Problems: Attention deficit hyperactivit y disorder Attention deficit hyperactivity disorder , combined type Bipolar disorder Generalized anxiety disorder History of alcohol abuse , Surgical History Surgery Date(Month/Year) Other jaw 04/18/2002
--- OUTSIDE RECORDS SUMMARY | 2024-03-24 03:15 | XMS_ITS | Referral Summary ---
Author Organization [facility] Address [address] [place] [address] Care Team Providers Care Supervisor Mending Name Role Phone Steve Oquendo MD Primary Care Provider [phone] Source Comments [facility],non-owned Affiliates and Associated Physician Practices is amultiple site organization consisting of ambulatory clinics and hospital sitesin [place], [place], [place] and [place]. This disclosure is being madepursuant to the Care Everywhere program and may not contain all information available regarding this patient. Last updated 17.[facility] [employer] Allergies No known active allergies Immunizations Name Administration Dates Next Due INFLUENZA VACCINE, QUADR. (F LUZONE; FLULAVAL; FLUARIX; AFLURIA QUADRIVALENT; 6MO+), 0.5 ML (IIV4) 12/20/2018 TDAP (7yrs+) 12/20/2018 Social History Tobacco Use Types Packs/Day Years Used Date Smoking Tobacco: Never Assessed Sex and Gender Information Value Date Recorded Sex Assigned at Not on file Gender Identity Male 12/20/2018 2:04 PM CDT Sexual Orientation Not on file Plan of Treatment Not on file Care Teams Supervisor Mending Relationship Specialty Start Date End Date Steve Oquendo MD [address] [place] [id number] PCP - General Family Medicine 12/20/18
--- OUTSIDE RECORDS SUMMARY | 2024-03-24 03:15 | XMS_ITS | Patient Health Summary ---
Author Organization [facility] Address [address] [place] [address] Care Team Providers Care Carpet Tile Layer Name Role Phone Steve Oquendo MD Primary Care Provider [phone] Note from [facility],non-owned Affiliates and Associated Physician Practices is amultiple site organization consisting of ambulatory clinics and hospital sitesin [place], [place], [place] and [place]. This disclosure is being madepursuant to the Care Everywhere program and may not contain all information available regarding this patient. Last updated 17.[facility] Allergies No known active allergies Immunizations * INFLUENZA VACCINE, QUADR. (FLUZONE; FLULAVAL; FLUARIX; AFLURIA QUADRIVALENT; 6MO+), 0.5 ML (IIV4)(Given 12/20/2018) * TDAP (7yrs+)(Given 12/20/2018) Social History Tobacco Use Types Packs/Day Years Used Date Smoking Tobacco: Never Assessed Sex and Gender Information Value Date Recorded Sex Assigned at Not on file Gender Identity Male 12/20/2018 2:04 PM CDT Sexual Orientation Not on file Care Teams Carpet Tile Layer Relationship Specialty Start Date End Date Steve Oquendo MD [address] [place] [address] PCP - General Family Medicine 12/20/18
--- OUTSIDE RECORDS SUMMARY | 2024-03-24 03:15 | XMS_ITS ---
Author Organization [facility] [employer] Address [address] [place] [address] Care Team Providers Care Audio Video Technician Name Role Phone Khadrafannyenrike Angelica MARTINEZ Primary Care Provider Unavailab Whitney Garcia Unavailable [phone] Allergies No Known Allergies Results Component Value Reference Range Notes UDT Reviewed date:01/10/2024 12:33:36 PM Interpretation: Performing Lab: Notes/Report: THC NEG 0 - 50 ng/ml Cocaine NEG 0 - 300 ng/ml Amphetamine NEG 0 - 1000 ng/ml Buprenorphine (BUP) NEG 0 - 10 ng/ml Oxazepam (BZO) NEG 0 - 300 ng/ml Methamphetamine (MET) NEG 0 - 1000 ng/ml Methylenedioxymethamphetamine (MDMA) NEG 0 - 500 ng/ml Morphine (MOP 300/[id number]) NEG 0 - 300 ng/ml Methadone (MTD) NEG 0 - 300 ng/ml Oxycodone NEG 0 - 300 ng/ml REASON FOR VISIT follow up medication management, phq less than 5 Medications Medication SIG (Take, Route, Frequency, Duration) [...] Master's degree (e.g., MA, MS, Noemy, MEd, CATTLE DRIVER, ISHMAEL) Are you currently employed?: Yes 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) Marriage and Sexuality What is your relationship status?: Are you sexually active?: No Do you use protection during sex?: No How many children do you have?: 1 Home and Environment Are there any guns present in your home?: No Advance Directive Do you have an advance directive?: No Do you have a medical power of bankruptcy attorney?: No Vital Signs Blood pressure systolic 126 mm Hg 01/10/20 24 Blood pressure diastolic 83 mm Hg 024 Heart Rate 96 /min 01/10/2024 Height 72.00 in 01/10/2024 Weight 254.8 lbs 01/10/2024 BMI 34.55 kg/m2 01/10/2024 Height-cm 182.88 cm 01/10/2024 Weight-kg 115.58 kg 01/10/2024 Encounters Encounter Location Date Provider Diagnosis [facility] [address] [address] 01/10/2024 Whitney Bustamante Attention-deficit hyperactivity disorder, combined type F90.2 ; Generalized anxiety disorder F41.1 ; Bipolar disorder, unspecified F31.9 and History of alcohol abuse F10.11 Assessments Encounter Date Diagnosis (ICD Code) Assessment Notes Treatment Notes Treatment Clinical Notes Section Notes 01/10/2024 Attention-defici t hyperactivity disorder, combined type [...] 40mg daily, take with food recommend counseling 01/10/2024 Bipolar disorder, unspecified (ICD-10 - F31.9) cont risperidone 3mg qhs long-term dx, rule out MDD with substance and/or ADHD 01/10/2024 History of alcohol abuse (ICD-10 - F10.11) no usehx intermittent problematic userecommend continue to abstain from alcohol is attending [facility] Recovery meetings Plan Of Treatment Medication Medication Name Sig Start Date Stop Date Notes Vilazodone HCl 40 MG 1 tablet with food Oral Once a day for 30 days Methylphenidate HCl ER (OSM) 27 MG 1 tablet in the morning Oral Once a day for 30 days 01/10/2024 risperiDONE 3 MG 1 tablet at bedtime Oral Once a day for 30 days Treatment Notes Assessment Notes Attention-deficit hyperactiv ity disorder, combined type cont methylphenidate ER 27mg qam monitor pulse at home, taught how, keep log, check in am before meds and then later in day, a few times a week, bring to next appt. minimize caffeine cont avoid cannabis/alcohol Generalized anxiety disorder cont vilazodone 40mg daily, take with food recommend counseling Bipolar disorder, unspecified cont rispe ridone 3mg qhs History of alcohol abuse no usehx intermittent problematic userecommend continue to abstain from alcohol is attending Smart Recovery meetings Next Appt Details Follow Up: 1 month, Reason: Provider Name:Radha engel, 03/27/2024 11:00:00 AM, [address], [address], [place], [address], Progress Notes * JAMES VILLANUEVA EDWARDDOB:[birth year] (43 yo M)Acc No.[id number]:01/10/2024 Patient:?JAMES VILLANUEVA ED CHAVEZ Provider:?TIBURCIO POOLE :1980???Age:43 Y???Sex:Male Giovanny e:01/10/2024 Address:[address] [place], [place] [id number] Pcp:Angelica Jaramillo DO Subjective: * Chief Complaints: * ???1. Follow up medication m anagement. 2. Phq less than 5. * HPI: ???Depression Screening:?CALI-7 (2018 Edition)?Feeling nervous, anxious, or on edge?Not at all,?Not being able to stop or control worrying?Not at all,?Worrying too much about different things?Not at all,?Trouble relaxing?Not at all,?Being so restless that it is hard to sit still?Not at all,?Becoming easily annoyed or irritable?Not at all,?Feeling afraid as if something awful might happen?Not at all,?Total CALI-7 Score?0,?Interpretation of Total?(0 to 4) No Anxiety.?[place]-Suicide Severity Rating Scale:?Suicide Risk (CSRS-screener)?in the past one month Have you wished you were or wished you could go to sleep and not wake up??No,?in the past one month Have you actually had any thoughts of killing yourself??No.?Depression screening:?PHQ-9?Little interest or pleasure in doing things?Not at all,?Feeling down, depressed, or hopeless?Not at all,?Trouble falling or staying asleep, or sleeping too much?Several days,?Feeling tired or having little energy?Not at all,?Poor appetite or overeating?Not at all,?Feeling bad about yourself or that you are a failure, or have let yourself or your family down?Not at all,?Trouble concentrating on things, such as reading the newspaper or watching television?Not at all,?Moving or speaking so slowly that other people could have noticed; or the opposite, being so fidgety or restless that you have been moving around a lot more than usual?Not at all,?Thoughts that you would be better off or of hurting yourself in some way?Not at all,?Total Score?1, Interpretation?Minimal Depression.?Intervention?Depression Screening Findings?Negative,?Follow-Up for Depression?Mental health care management,?Suicide Risk Assessment Performed?01/10/2024 ,?Additional Evaluation for Depression?Psychiatric interview and evaluation,?Name of the standardized tool used for adult depression screening:?Patient Health Questionnaire (PHQ-9).?History of Presenting Problem:? 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 hx alcohol misuse and cannabis. last visit came off atomoxetine, did not have any issues with that, didn't notice any difference. Denies side effects from current meds. Working good. ADHD med definitely helps in morning, increase focus,?then dwindles off in afternoon.??Denies depression, SI, lyric, psychosis. Anxiety some trying to find a new job, have to do technical interview and they are very difficult, a little stressed out, preparing for that. Otherwise anxiety is ok. Denies panic attacks. Sleep: still takes a while to fall asleep, no worse since stimulant, is long-term issue.? have gone to a few Smart Recovery sessions, it's interesting; more about communication and goals, understanding substance: caffeine: decreased to 2-3 c coffee former smoker ETOH: none since 03/18 cannabis: none since 03/18 pulse WNL but elevated, reports has been sick, enough to just lay in bed for 2 days, thinks may be related to that. think I had fever, has sore throat, stuffy head (wearing mask today). ???General Follow Up:? Ongoing notes: Past meds: seroquel-too tired am;?xanax didn't like;?adderall, focalin, atomoxetine Psychotherapy: never done Trauma/abuse hx: denied INITIAL [...] to AA a few times that's it. Anxiety hx: started around my 30s. used [...] happens sporadically once or twice a week. denied hx of psychosis -consider if accurate memory of past sx etc, has been on mood stabilizing medication for years-family hx, grandmother-unclear: but consider long-term medication affecting ongoing sx and hx substance use; has family hx and historical dx. (bipolar vs ADHD vs substance, etc). ???Attention deficit / hyperactivity disorder:? ADHD hx/notes: Denied past dx of ADHD. says past stimulant scripts for social anxiety/mind blanking. I avoid going places, seeing friends, don't want to be social. Afraid I'll be a shut in. I hate the awkwardness. With stimulants more up mood, talkative, but not manic.?consider if autism-says my thinks I'm on the spectrum-says it constantly? Completed BO/AHUJA testing on 06/27/23, valid, results [...] ,. * Surgical History:?Other jaw 04/18/2002. * Family History:?Father: Alco hol abuse .?Mother: Depressive disorder , Alcohol abuse .?Paternal Grandmother: Bipolar disorder .? * Social History:?Tobacco Use:?Tobacco Control (Standard)?Tobacco use:?Former smoker,?How long has it been since you last smoked??Greater than 10 years.?Migrated Social History:?Migrated Social History: Alcohol Intake: None 05/27/2023,Tobacco Years: Former smoker 05/27/2023. 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 * Medications:?Taking risperiD ONE 3 MG Tablet 1 tablet at bedtime Oral Once a day , Taking Vilazodone HCl 40 MG Tablet 1 tablet with food Oral Once a day , Taking Meloxicam 15 MG Tablet Oral , Taking Methylphenidate HCl ER (OSM) 27 MG Tablet Extended Release Oral , Discontinued Atomoxetine HCl 40 MG Capsule 1 capsule in the morning Oral Once a day , Notes to Pharmacist: taper off * Allergies:?N.K.D.A. Objective: * Vitals:?BP:126/83mm Hg, HR:9 6/min, Wt:254.8lbs, Wt-k.58 kg, Ht: 72.00 in, Ht-cm: 182.88 cm, BMI:34.55Index, Body Surface Area: 2.42. * Examination: ???Psychiatry: [...] alcohol abuse - F10.11??? Plan: * Treatment: ? Value Reference Range ?THC NEG 0 - 50 ng/ml * ?Cocaine NEG 0 - 300 ng/ml * ?Amphetamine NEG 0 - 1000 ng /ml * ?Buprenorphine (BUP) NEG 0 - 10 ng/ml * ?Oxazepam (BZO) NEG 0 - 300 ng/ml * ?Methamphetamine (MET) NEG 0 - 1000 ng/ml * ?Methylenedioxymethamphetamine (MDMA) NEG 0 - 500 ng/ml * ?Morphine (MOP 300/[id number]) NEG 0 - 300 ng/ml * ?Methadone (MTD) NEG 0 - 300 ng/ml * ?Oxycodone NEG 0 - 300 ng/ml Notes: cont methylphenidate ER 27mg qam monitor pulse at home, taught how, keep log, check in am before meds and then later in day, a few times a week, bring to next appt. minimize caffeine cont avoid cannabis/alcohol?? Clinical Notes:UDS: neg, does not test methylphenidate, send for conf, reports did take stim today tolerated stopping atomoxetine. afternoon concerta not as effective, consider increase. Though pulse has been increasing particularly if look back to June- though that may have been low reading, and today also sick. Discussmonitor pulse at home. do this prior to consider increase/change for better afternoon coverage. Will view log and recheck pulse/BP next visit. f/u 1 month, earlier if concerns -discussed transition to new provider as I am leaving the practice after this month notes: -BO/AHUJA testing supported ADHD combined dx -Diff: consider if undiagnosed autism may play a role in sx; have discussed ??2.?Generalized anxiety disorder? Refill Vilazodone HCl Tablet, 40 MG, 1 tablet with food, Oral, Once a day, 30 days, 30 Tablet, Refills 1.?? Notes: cont vilazodone 40mg daily, take with food recommend counseling??3.?Bipolar disorder, unspecified? Refill risperiDONE Tablet, 3 MG, 1 tablet at bedtime, Oral, Once a day, 30 days, 30 Tablet, Refills1.?? Notes: cont risperidone 3mg qhs ?? Clinical Notes: long-term dx, rule out MDD with substance and/or ADHD?? 4.?History of alcohol abuse? Notes: no usehx intermittent problematic userecommend continue to abstain from alcohol is attending Smart Recovery meetings?? * Procedure Codes:?75787 BEHAV ASSMT W/SCORE & DOCD/STAND INSTRUMENT, 73423 DRUG TST PRSMV READ INSTRMNT ASSTD DIR OPT OBS * Follow Up:?1 month * Billing Information: * Visit Code:? 63467 OFFICE OUTPATIENT VISIT 25 MINUTES DETAILED HISTORY AND EXAM/MODERATE MEDICAL DECISION MAKING. * Procedure Codes:? 35247 BEHAV ASSMT W/SCORE & DOCD/STAND INSTRUMENT. 57075 DRUG TST PRSMV READ INSTRMNT ASSTD DIR OPT OBS. * Sign off status: Completed true * Provider:TIBURCIO DE LEON Date:? 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 hx alcohol misuse and cannabis. last visit came off atomoxetine, did not have any issues with that, didn't notice any difference. Denies side effects from current meds. Working good. ADHD med definitely helps in morning, increase focus, then dwindles off in afternoon. Denies depression, SI, lyric, psychosis. Anxiety some trying to find a new job, have to do technical interview and they are very difficult, a little stressed out, preparing for that. Otherwise anxiety is ok. Denies panic attacks. Sleep: still takes a while to fall asleep, no worse since stimulant, is long-term issue. have gone to a few [facility] Recovery sessions, it's interesting; more about communication and goals, understanding substance: caffeine: decreased to 2-3 c coffee former smoker ETOH: none since 03/18 cannabis: none since 03/18 pulse WNL but elevated, reports has been sick, enough to just lay in bed for 2 days, thinks may be related to that. think I had fever, has sore throat, stuffy head (wearing mask today) Depression screening PHQ-9 Little interest or pleasure in doing things: Not at all Feeling down, depressed, or hopeless: No t at all Trouble falling or staying asleep, or sl eeping too much: Several days Feeling tired or having little energy: N ot at all Poor appetite or overeating: Not at all Feeling bad about yourself o r that you are a failure, or have let yourself or your family down: Not at all Trouble concentrating on thi ngs, such as reading the newspaper or watching television: Not at all Moving or speaking so slowly that other people could have noticed; or the opposite, being so fidgety or restless that you have been moving around a lot more than usual: Not at all Thoughts that you would be b rickey off or of hurting yourself in some way: Not at all Total Score: 1 Interpretation: Minimal Depression Intervention Depression Screening Findings: N egative Follow-Up for Depression: Mental health care management Suicide Risk Assessment Performed: 01/09 Additional Evaluation for Depression: Ps ychiatric interview and evaluation Name of the standardized too l used for adult depression screening:: Patient Health Questionnaire (PHQ-9) Depression Screening CALI-7 (2018 Edition) Feelin g nervous, anxious, or on edge: Not at all Not being able to stop or control worryi ng: Not at all Worrying too much about different things : Not at all Trouble relaxing: Not at all Being so restless that it is hard to sit still: Not at all Becoming easily annoyed or irritable: No t at all Feeling afraid as if something awful dora ht happen: Not at all Total CALI-7 Score: 0 Interpretation of Total: (0 to 4) No Anx iety [place]-Suicide Severity Rating Scale Suicide Risk (CSRS-screener) in the past one month Have you wished you were or wished you could go to sleep and not wake up?: No in the past one month Have y ou actually had any thoughts of killing yourself?: No Examination Category Sub-Category Detail Notes Category Not [...]
--- OUTSIDE RECORDS SUMMARY | 2024-03-24 03:15 | XMS_ITS ---
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 Name Role Phone Angelica Jaramillo DO Primary Care Provider Unavail marco JohnramosWhitney damon Unavailable [phone] Allergies No Known Allergies REASON FOR VISIT follow up Medications Medication SIG (Take, Route, Frequency, Duration) Notes Start Date End Date Status Methylphenidate HCl ER (OSM) 27 MG 1 tablet in the morning Oral Once a day for 30 days 11/08/2023 12/08/2023 Active risperiDONE 3 MG 1 tablet at bedtime Oral Once a day for 30 days Active Atomoxetine HCl 40 MG 1 capsule in the morning Oral Once a day for 7 days taper off Active QUEtiapine Fumarate ER 300 MG Oral 08/02/2023 Not-Taking Vilazodone HCl 40 MG 1 tablet with food Oral Once a day for 30 days Active Meloxicam 15 MG Oral 08/02/2023 [place] Social History Sex Assigned At : Social History Observation Description Sex Assigned At Male Section Notes: Social History Substance Use Do [...] received?: Master's degree (e.g., MA, MS, Noemy, Stormy, 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, ISHMAEL) Are you currently employed?: Yes 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) Marriage and Sexuality What is your relationship status?: Are you sexually active?: No Do you use protection during sex?: No How many children do you have?: 1 Home and Environment Are there any guns present in your home?: No Advance Directive Do you have an advance directive?: No Do you have a medical power of oven stripper?: No Vital Signs Blood pressure systolic 135 mm Hg 11/08/19 24 Blood pressure diastolic 88 mm Hg 024 Heart Rate 81 /min 11/08/2023 Height 72.00 in 11/08/2023 Weight 248 lbs 11/08/2023 BMI 33.63 kg/m2 11/08/2023 Height-cm 182.88 cm 11/08/2023 Weight-kg 112.49 kg 11/08/2023 Encounters Encounter Location Date Provider Diagnosis [facility] [employer] [address] [facility] [address] [place] [address] 11/08/2023 Whitney Bustamante Attention-deficit hyperactivity disorder, combined type F90.2 ; Generalized anxiety disorder F41.1 ; Bipolar disorder, unspecified F31.9 and History of alcohol abuse F10.11 Assessments Encounter Date Diagnosis (ICD Code) Assessment Notes Treatment Notes Treatment Clinical Notes Section Notes 11/08/2023 Attention-deficit hyperactivity disorder, combined type (ICD-10 - [...] play a role in sx; have discussed 11/08/2023 Generalized anxiety disorder (ICD-10 - F41.1) cont vilazodone 40mg daily, take with food recommend counseling 11/08/2023 Bipolar disorder, unspecified (ICD-10 - F31.9) cont risperidone 3mg qhs long-term dx, rule out MDD with substance and/or ADHD 11/08/2023 History of alcohol abuse (ICD-10 - F10.11) no usehx intermittent problematic userecommend continue to abstain from alcohol is looking into [facility] program Plan Of Treatment Medication Medication Name Sig Start Date Stop Date Notes Methylphenidate HCl ER (OSM) 27 MG 1 tablet in the morning Oral Once a day for 30 days 11/08/2023 12/08/2023 risperiDONE 3 MG 1 tablet at bedtime Oral Once a day for 30 days Atomoxetine HCl 40 MG 1 capsule in the morning Oral Once a day for 7 days taper off Vilazodone HCl 40 MG 1 tablet with food Oral Once a day for 30 days Treatment Notes Assessment Notes Attention-deficit hyperactiv ity disorder, combined type decrease atomoxetine to 40mg qam x1 week then stop cont methylphenidate ER 27mg qam (call/portal 3-5 days before due for refill) decrease caffeine cont avoid cannabis/alcohol Generalized anxiety disorder cont vilazodone 40mg daily, take with food recommend counseling Bipolar disorder, unspecified cont rispe ridone 3mg qhs History of alcohol abuse no usehx intermittent problematic userecommend continue to abstain from alcohol is looking into [facility] program Next Appt Details Follow Up: 2 Months, Reason: Provider Name:Radha engel, 03/27/2024 11:00:00 AM, [address] [place] [address] [address], [facility] [address], [place], [address], Progress Notes * JAMES VILLANUEVA EDWARDDOB:1 (42 yo M)Acc No.[id number]:11/08/2023 Patient:?JAMES VILLANUEVA ED CHAVEZ Provider:?TIBURCIO POOLE :1980???Age:42 Y???Sex:Male Giovanny e:11/08/2023 Address:[address] [place], [place] [address], [id number] Pcp:Angelica Jaramillo DO Subjective: * Chief Complaints: * ???1. Follow up. * HPI: ???History of Presenting Problem:? 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 hx alcohol misuse and cannabis. started stimulant, I enjoy it, more alert at work, easier to concentrate, easier to hold a conversation. Denies side effects, don't even have a crash in afternoon. Though most of the benefit is in am before lunch, less benefit in afternoon, no clear benefit in evening. Not sure the atomoxetine is really doing anything in comparison.? denies depression, SI. anxiety still good. Sleep pretty good, wake up 4 or 5 am sometimes. no worse with med change. Denies lyric, psychosis.? I started looking into that [facility], but they always have meetings when I have meetings, but I'm going to try to start going on Fridays.? substance: caffeine high-cutting back former smoker ETOH: none since 03/18 [...] .?Paternal Grandmother: Bipolar disorder .? 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 * Medications:?Taking Meloxica m 15 MG Tablet Oral , Taking risperiDONE 3 MG Tablet 1 tablet at bedtime Oral Once a day , Taking Atomoxetine HCl 80 MG Capsule 1 capsule in the morning Oral Once a day , stop date 12/03/2023, Taking Vilazodone HCl 40 MG Tablet 1 tablet with food Oral Once a day , Taking Methylphenidate HCl ER (OSM) 27 MG Tablet Extended Release TAKE 1 TABLET BY MOUTH EVERY DAY IN THE MORNING FOR 30 DAYS Oral , Not-Taking QUEtiapine Fumarate ER 300 MG Tablet Extended Release 24 Hour Oral , Medication List reviewed and reconciled with the patient * Allergies:?N.K.D.A. Objective: * Vitals:?BP:135/88mm Hg, HR:8 1/min, Wt:248lbs, Wt-k.49 kg, Ht: 72.00 in, Ht-cm: 182.88 cm, BMI:33.63Index, Body Surface Area: 2.39. * Examination: ???Psychiatry: ?Appearance:?Appearance: alert,well-groomed, clean, appears [...] a day, 30 days, 30 Tablet, Refills 2.?? Notes: cont vilazodone 40mg daily, take with food recommend counseling?? 3.?Bipolar disorder, unspeci fied? Refill risperiDONE Tablet, 3 MG, 1 tablet at bedtime, Oral, Once a day, 30 days, 30 Tablet, Refills 2.?? Notes: cont risperidone 3mg qhs ?? Clinical Notes: long-term dx, rule out MDD with substance and/or ADHD?? 4.?History of alcohol abuse? Notes: no usehx intermittent problematic userecommend continue to abstain from alcohol is looking into [facility] program?? * Follow Up:?2 Months * Billing Information: * Visit Code:? 88273 OFFICE OUTPATIENT VISIT 25 MINUTES DETAILED HISTORY AND EXAM/MODERATE MEDICAL DECISION MAKING. * Procedure Codes:? * Sign off status: Completed true * Provider:?TIBURCIO POOLE Date:? 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 hx alcohol misuse and cannabis. started stimulant, I enjoy it, more alert at work, easier to concentrate, easier to hold a conversation. Denies side effects, don't even have a crash in afternoon. Though most of the benefit is in am before lunch, less benefit in afternoon, no clear benefit in evening. Not sure the atomoxetine is really doing anything in comparison. denies depression, SI. anxiety still good. Sleep pretty good, wake up 4 or 5 am sometimes. no worse with med change. Denies lyric, psychosis. I started looking into that [facility], but they always have meetings when I have meetings, but I'm going to try to start going on Fridays. substance: caffeine high-cutting back former smoker ETOH: none since 03/18 [...]
--- OUTSIDE RECORDS SUMMARY | 2024-03-24 03:15 | XMS_ITS | Clinical Summary ---
Author Organization 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,non-owned Affiliates and Associated Physician Practices is amultiple site organization consisting of ambulatory clinics and hospital sitesin [place], [place], [place] and [place]. This disclosure is being madepursuant to the Care Everywhere program and may not contain all information available regarding this patient. Last updated 17.[facility] Allergies No known active allergies Immunizations Name [...] Orientation Not on file Plan of Treatment Health Maintenance Due Date Last Done Comments LIPID TESTING 1981 HIV SCREENING 1996 HEPATITIS C SCREENING 12/23/1999 HEPATITIS B VACCINE (1 of 3 - 19+ 3-dose series) 2000 COVID-19 VACCINE (2023-2 5 season) 2023 INFLUENZA VACCINE (#1) 2023 12/20/2018 DEPRESSION SCREENING 03/18/2024 DTAP/TDAP/TD VACCINES (2 - T d or Tdap) 12/20/2028 12/20/2018 ZOSTER VACCINE (1 of 2) 12/28/2031 HIB VACCINE Aged Out No longer eligi ble based on patient's age to complete this topic HPV VACCINE Aged Out No longer eligi ble based on patient's age to complete this topic MENINGOCOCCAL VACCINE Aged Out No brenda kyung eligible based on patient's age to complete this topic PNEUMOCOCCAL VACCINE Aged Out No long er eligible based on patient's age to complete this topic Care Teams Grain And Yeast Plants Supervisor Relationship Specialty Start Date End Date Steve Oquendo MD [address] [place] [address] PCP - General Family Medicine 12/20/18
--- OUTSIDE RECORDS SUMMARY | 2024-03-24 03:16 | XMS_ITS | Clinical Summary ---
Author Organization [employer] Address [address] Jefferyn: Epic Prelude ADT CRELASHANDA JOINER [address] Care Team Providers Care Critical Care Educator Name Role Phone Unavailable Primary Care Provider Unavailabl e Social History Tobacco Use Types Packs/Day Years Used Date Smoking Tobacco: Never Assessed Sex and Gender Information Value Date Recorded Sex Assigned at Not on file Gender Identity Not on file Sexual Orientation Not on file Plan of Treatment Health Maintenance Due Date Last Done Comments DTAP/TDAP/TD VACCINES (1 - Tdap) 2000 HEPATITIS B VACCINES (1 of 3 - 19+ 3-dose series) 2000 INFLUENZA VACCINE (#1) 2023 HPV VACCINES Aged Out No longer eligi ble based on patient's age to complete this topic PNEUMOCOCCAL VACCINE 0-64 YEARS Aged Out No longer eligible based on patient's age to complete this topic
--- OUTSIDE RECORDS SUMMARY | 2024-03-24 03:16 | XMS_ITS | Encounter Summary ---
Author Organization [facility] Address [address] [place] [address] Care Team Providers Care It Coordinator Name Role Phone Steve Oquendo MD Primary Care Provider [phone] Reason for Visit * Reason Comments Imm Inj flu and Tdap Encounter Details Date Type Department Care Team (Late st Contact Info) Description 12/20/2018 2:00 PM CDT Office Visit [facility] AT [address] [address] Provider, Krunal Malave Need for vaccination (Primary Dx) Social History Tobacco Use Types Packs/Day Years Used Date Smoking Tobacco: Never Assessed Sex and Gender Information Value Date Recorded Sex Assigned at Not on file Gender Identity Male 12/20/2018 2:04 PM CDT Sexual Orientation Not on file documented as of this encounter Patient Instructions * Patient Instructions* Hazel Atkins, MINE GEOLOGIST-BLINTZE ROLLER - 12/20/2018 2:06 PM CDT Patient Education Flu Vaccine in Adults RN ORTHOPAEDICS: The flu, or influenza, vaccine is an injection given to help prevent influenza (flu). The flu is caused by a virus. The virus spreads from person to person through coughing and sneezing. Several types of viruses cause the flu. The viruses exchange trouble shooter time, so new vaccines are made each year. The vaccine begins to protect you about 2 weeks after you get it. The flu vaccine is usually injected intothe upper arm. It may be given in your thigh. The vaccine is offered every year starting in early fall. Get the vaccine as soon as it is available. Call your local emergency number (911 in the ) if: ?? Your mouth and throat are swollen. ?? You are wheezing or have trouble breathing. ?? You have chest pain or your heart is beating faster than normal for you. ?? You feel like you are going to faint. Call your doctor if: ?? Your face is red or swollen. ?? You have hives that spread over your body. ?? You feel weak or dizzy. ?? You have increased pain, redness, or swelling around the area where the shot was given. ?? You have questions or concerns about the influenza vaccine. Who should not get the flu vaccine or should wait to get it: ?? Anyone who has had an allergic reaction to the flu vaccine ?? Anyone who received a diagnosis of Guillain-Godoy?? syndrome within 6 weeks of getting a flu vaccine ?? Anyone who has a fever of 101??F (38.3 ??C) or higher will need to wait until he or she is well Flu vaccine and egg allergies: The flu vaccine may contain a small amount of egg protein. The amount is so low that it is not likely to cause an allergic reaction. Tell your healthcare provider if you have an egg allergy before you get the flu vaccine. Egg-free vaccines may be available, but do notdelay getting a flu vaccine to wait for it. Risks of the flu vaccine: The flu vaccine may cause mild symptoms, such as a fever, headache, and muscle aches. It may also cause mild to moderate soreness or redness at the area where you were giventhe injection. You may still get the flu after you receive the vaccine. You may have an allergic reaction to the vaccine. This can be life-threatening. Apply a warm compress to the injection area to decrease pain and swelling. Follow up with your doctor as directed: Write down your questions so you remember to ask them during your visits. ?? Copyright [employer] 2019 Information is for End User's use only and may not be sold, redistributed or otherwise used for commercial purposes. All illustrations and images included in CareNotes?? are the copyrighted property of [employer].A[employer]M., Inc[employer] or [employer] The above information is an hand rug braider only. It is not intended as medical advice for individual conditions or treatments. Talk to your doctor, nurse or pharmacist before following any medical regimen to see if it is safe and effective for you. Patient Education Tdap and Td Vaccines for Adults RN ORTHOPAEDICS: Tdap and Td vaccines are shots given to protect you and others around you from tetanus, diphtheria,and pertussis (whooping cough). These are severe infections caused by bacteria. Tetanus bacteria are found in dirt, manure, and dust. The bacteria enter the body through open skin, such as puncture wounds and govea. Diphtheria and pertussis bacteria are spread from person to person. Pertussis is usually more serious in babies and young children. Call your local emergency number (911 in the ) if: ?? Your mouth and throat are swollen. ?? You are wheezing or have trouble breathing. ?? You have chest pain or your heart is beating faster than usual. Call your doctor if: ?? You have severe pain, redness, and swelling in your arm where the shot was given. ?? Your face is red or swollen. ?? You have hives that spread over your body. ?? You feel weak or dizzy. ?? You have a fever or chills. ?? You have a headache, body aches, or joint pain. ?? You have nausea or diarrhea, or you are vomiting. ?? You have questions or concerns about the vaccine. Why you may need the Tdap vaccine: ?? You did not get some or any of the recommended DTaP doses as a child. ?? You did not get Tdap when you were 11 or 12 years old. ?? You are a healthcare worker who never got a dose of Tdap. ?? You never got a dose of Tdap and will have close contact with a baby younger than 12 months. Getthe vaccine within 2 weeks of the close contact, if possible. ?? You have a severe cut or burn. ?? You are a woman. You need 1 dose of Tdap during each , when you are 27 to 36 weeks along. ?? You have just had a baby and did not get a dose of Tdap during your . This dose is onlygiven if you never had a dose of Tdap. When the Td vaccine is given: The Td vaccine is a booster shot that may be given every 10 years. Tdcan also be given after a severe wound or burn to prevent tetanus. This may be given if it has beenat least 5 years since your last Td vaccine. Do not get the Tdap vaccine if: ?? You are allergic to any part of the vaccine. ?? You had a severe allergic reaction to DTaP or DTP. ?? You had seizures or a coma within 7 days of receiving DTaP or DTP, caused by the vaccine. You can still safely get the Td vaccine in this case. Do not get the Td vaccine if: ?? You had an allergic reaction to DTaP, DTP, Tdap, or Td. ?? You are allergic to any part of the Td vaccine. Reasons to wait to get the Tdap or Td vaccine: Your provider may wait to give the vaccine until he or she feels it is safe for you. Your provider will need to know if you have or had any of the following: ?? A seizure disorder or a problem with your nervous system ?? Severe pain or swelling after a dose of DTaP, DTP, or Td ?? Any severe allergy ?? A history of Guillain-Godoy?? syndrome ?? A fever of 105??F (40.5??C) after getting DTaP or DTP ?? A fever or any current illness Risks of the Tdap and Td vaccines: The area where the vaccine was given may be red, tender, or swollen. This should get better in 1 to 2 days. Rarely, you may develop severe shoulder pain that lasts longer than 2 days. You may develop a fever. You may have an allergic reaction to the vaccine. This can be life-threatening. Apply a warm compress to the injection area as directed to decrease pain and swelling. Follow up with your doctor as directed: Write down your questions so you remember to ask them during your visits. ?? Copyright [employer] 2019 Information is for End User's use only and may not be sold, redistributed or otherwise used for commercial purposes. All illustrations and images included in CareNotes?? are the copyrighted property of [employer] or [employer] The above information is an hand rug braider only. It is not intended as medical advice for individual conditions or treatments. Talk to your doctor, nurse or pharmacist before following any medical regimen to see if it is safe and effective for you. documented in this encounter Progress Notes * Hazel Atkins APRN-CNP - 12/20/2018 2:04 PM CDT .Jimi Bee is a .37 year old .male patient, here for: Chief Complaint Patient presents with ??? Imm Inj flu and Tdap .No orders of the defined types were placed in this encounter. Flu and Tdap vaccine given IM to left deltoid. Patient tolerated without difficulty. Hemostasis achieved, and sterile band-aid placed. Immunization questionnaires scanned into medical records. -Advised patient to keep a record of all vaccinations. (may use [facility] MyChart if desired) -May take Tylenol (acetaminophen) as needed for aches/pains per package directions. -If you develop redness, swelling at the injection site; it should resolve on its own within 5-7 days of injection. Use warm compresses as needed to the site. -Return to clinic for an evaluation if needed. -Current [facility] V[facility] Handout given Follow-up with your Steve Oquendo MD as directed. .Hazel Atkins APRN-BLINTZE ROLLER 12/20/2018 2:04 PM Patient Education Flu Vaccine in Adults RN ORTHOPAEDICS: The flu, or influenza, vaccine is an injection given to help prevent influenza (flu). The flu is caused by a virus. The virus spreads from person to person through coughing and sneezing. Several types of viruses cause the flu. The viruses exchange trouble shooter time, so new vaccines are made each year. The vaccine begins to protect you about 2 weeks after you get it. The flu vaccine is usually injected intothe upper arm. It may be given in your thigh. The vaccine is offered every year starting in early fall. Get the vaccine as soon as it is available. Call your local emergency number (911 in the ) if: ?? Your mouth and throat are swollen. ?? You are wheezing or have trouble breathing. ?? You have chest pain or your heart is beating faster than normal for you. ?? You feel like you are going to faint. Call your doctor if: ?? Your face is red or swollen. ?? You have hives that spread over your body. ?? You feel weak or dizzy. ?? You have increased pain, redness, or swelling around the area where the shot was given. ?? You have questions or concerns about the influenza vaccine. Who should not get the flu vaccine or should wait to get it: ?? Anyone who has had an allergic reaction to the flu vaccine ?? Anyone who received a diagnosis of Guillain-Godoy?? syndrome within 6 weeks of getting a flu vaccine ?? Anyone who has a fever of 101??F (38.3 ??C) or higher will need to wait until he or she is well Flu vaccine and egg allergies: The flu vaccine may contain a small amount of egg protein. The amount is so low that it is not likely to cause an allergic reaction. Tell your healthcare provider if you have an egg allergy before you get the flu vaccine. Egg-free vaccines may be available, but do notdelay getting a flu vaccine to wait for it. Risks of the flu vaccine: The flu vaccine may cause mild symptoms, such as a fever, headache, and muscle aches. It may also cause mild to moderate soreness or redness at the area where you were giventhe injection. You may still get the flu after you receive the vaccine. You may have an allergic reaction to the vaccine. This can be life-threatening. Apply a warm compress to the injection area to decrease pain and swelling. Follow up with your doctor as directed: Write down your questions so you remember to ask them during your visits. ?? Copyright [employer] 2019 Information is for End User's use only and may not be sold, redistributed or otherwise used for commercial purposes. All illustrations and images included in CareNotes?? are the copyrighted property of [employer] or [employer] The above information is an hand rug braider only. It is not intended as medical advice for individual conditions or treatments. Talk to your doctor, nurse or pharmacist before following any medical regimen to see if it is safe and effective for you. Patient Education Tdap and Td Vaccines for Adults RN ORTHOPAEDICS: Tdap and Td vaccines are shots given to protect you and others around you from tetanus, diphtheria,and pertussis (whooping cough). These are severe infections caused by bacteria. Tetanus bacteria are found in dirt, manure, and dust. The bacteria enter the body through open skin, such as puncture wounds and govea. Diphtheria and pertussis bacteria are spread from person to person. Pertussis is usually more serious in babies and young children. Call your local emergency number (911 in the [place]) if: ?? Your mouth and throat are swollen. ?? You are wheezing or have trouble breathing. ?? You have chest pain or your heart is beating faster than usual. Call your doctor if: ?? You have severe pain, redness, and swelling in your arm where the shot was given. ?? Your face is red or swollen. ?? You have hives that spread over your body. ?? You feel weak or dizzy. ?? You have a fever or chills. ?? You have a headache, body aches, or joint pain. ?? You have nausea or diarrhea, or you are vomiting. ?? You have questions or concerns about the vaccine. Why you may need the Tdap vaccine: ?? You did not get some or any of the recommended DTaP doses as a child. ?? You did not get Tdap when you were 11 or 12 years old. ?? You are a healthcare worker who never got a dose of Tdap. ?? You never got a dose of Tdap and will have close contact with a baby younger than 12 months. Getthe vaccine within 2 weeks of the close contact, if possible. ?? You have a severe cut or burn. ?? You are a woman. You need 1 dose of Tdap during each , when you are 27 to 36 weeks along. ?? You have just had a baby and did not get a dose of Tdap during your . This dose is onlygiven if you never had a dose of Tdap. When the Td vaccine is given: The Td vaccine is a booster shot that may be given every 10 years. Tdcan also be given after a severe wound or burn to prevent tetanus. This may be given if it has beenat least 5 years since your last Td vaccine. Do not get the Tdap vaccine if: ?? You are allergic to any part of the vaccine. ?? You had a severe allergic reaction to DTaP or DTP. ?? You had seizures or a coma within 7 days of receiving DTaP or DTP, caused by the vaccine. You can still safely get the Td vaccine in this case. Do not get the Td vaccine if: ?? You had an allergic reaction to DTaP, DTP, Tdap, or Td. ?? You are allergic to any part of the Td vaccine. Reasons to wait to get the Tdap or Td vaccine: Your provider may wait to give the vaccine until he or she feels it is safe for you. Your provider will need to know if you have or had any of the following: ?? A seizure disorder or a problem with your nervous system ?? Severe pain or swelling after a dose of DTaP, DTP, or Td ?? Any severe allergy ?? A history of Guillain-Godoy?? syndrome ?? A fever of 105??F (40.5??C) after getting DTaP or DTP ?? A fever or any current illness Risks of the Tdap and Td vaccines: The area where the vaccine was given may be red, tender, or swollen. This should get better in 1 to 2 days. Rarely, you may develop severe shoulder pain that lasts longer than 2 days. You may develop a fever. You may have an allergic reaction to the vaccine. This can be life-threatening. Apply a warm compress to the injection area as directed to decrease pain and swelling. Follow up with your doctor as directed: Write down your questions so you remember to ask them during your visits. ?? Copyright [employer] 2019 Information is for End User's use only and may not be sold, redistributed or otherwise used for commercial purposes. All illustrations and images included in CareNotes?? are the copyrighted property of [employer] or [employer] The above information is an hand rug braider only. It is not intended as medical advice for individual conditions or treatments. Talk to your doctor, nurse or pharmacist before following any medical regimen to see if it is safe and effective for you. documented in this encounter Plan of Treatment Not on file documented as of this encounter Visit Diagnoses Diagnosis Need for vaccination- Primary Need for prophylactic vaccination and inoculation against unspecified single disease documented in this encounter Care Teams It Coordinator Relationship Specialty Start Date End Date Steve Oquendo MD [address] [place] [id number] PCP - General Family Medicine 12/20/18 documented as of this encounter
--- OUTSIDE RECORDS SUMMARY | 2024-03-24 03:16 | XMS_ITS | Encounter Summary ---
Author Organization [facility] Address [address] [place] [address] Care Team Providers Care Probation And Patrol Agent Name Role Phone Unavailable Primary Care Provider Rafaela e Encounter Details Date Type Department Care Team (Late st Contact Info) Description 03/08/2004 Outpatient Historical [facility] [address] [address] Nicholas Morrow MD Social History Tobacco Use Types Packs/Day Years Used Date Smoking Tobacco: Never Assessed Sex and Gender Information Value Date Recorded Sex Assigned at Not on file Gender Identity Not on file Sexual Orientation Not on file documented as of this encounter Plan of Treatment Not on file documented as of this encounter Visit Diagnoses Not on filedocumented in this encounter
--- OUTSIDE RECORDS SUMMARY | 2024-03-24 03:17 | XMS_ITS | Encounter Summary ---
Author Organization [facility] Address [address] [place] [address] Care Team Providers Care Marine Animal Trainer Name Role Phone Unavailable Primary Care Provider Rafaela e Encounter Details Date Type Department Care Team (Latest Contact Info) Description 03/07/2004 Inpatient Historical [facility] [place] [address] [place] [address] ACQ HEAD DEFORMITY OTHER SPEC (Primary Dx) Social History Tobacco Use Types Packs/Day Years Used Date Smoking Tobacco: Never Assessed Sex and Gender Information Value Date Recorded Sex Assigned at Not on file Gender Identity Not on file Sexual Orientation Not on file documented as of this encounter Plan of Treatment Not on file documented as of this encounter Visit Diagnoses Diagnosis Other specified acquired deformity of head- Primary documented in this encounter
== END 2024-03-17 05:40 | disposition short-term general hospital (02) ==
PROVIDERS: Physician Assistant; Emergency Provider Emergency Medicine; PCP Family Medicine
DX: K12.2 Cellulitis and abscess of mouth (principal); F41.9 Anxiety disorder, unspecified; Z87.891 Personal history of nicotine dependence; Z79.899 Other long term (current) drug therapy
CPT/HCPCS: 36415; 70491; 80053; 83605; 85025; 86140; 96365; 99285; J0295; Q9967

== ENCOUNTER 2024-07-02 08:52 | Outpatient (CLI) | payer BC, SELFPAY ==
--- OUTSIDE RECORDS SUMMARY | 2024-07-02 09:13 | XMS_ITS | Referral Summary ---
Author Organization [facility] Address [address] [place] [address] Care Team Providers Care Flux Tube Attendant Name Role Phone Angelica Jaramillo DO Primary Care Provider [phone]- [phone] Encounters Date Type Department Care Team Description 05/19/2024 3:27 PM WATCH REPAIRER APPRENTICE - 05/19/2024 11:59 PM WATCH REPAIRER APPRENTICE Hospital Encounter [address] [address] Discharge Disposition: Discharge to home or self care 05/19/2024 Orders Only [facility] Infectious Diseases [address] [place] [phone] Jose Cantu MD Submandibular abscess 05/19/2024 3:00 PM WATCH REPAIRER APPRENTICE Office Visit [facility] Infectious Diseases [address] [place] [phone] Jose Cantu MD Submandibular abscess (Primary Dx) 05/06/2024 11:10 AM WATCH REPAIRER APPRENTICE - 05/06/2024 1:35 PM WATCH REPAIRER APPRENTICE Surgery [facility] Operating Room [address] [place] [phone] Rudy Clements, HUI REMOVAL HARDWARE - MANDIBLE 05/06/2024 12:17 PM WATCH REPAIRER APPRENTICE Anesthesia Event [facility] Operating Room [address] [place] [phone] Eladio Nagy MD Smith, Christine A., NP 05/06/2024 9:06 AM WATCH REPAIRER APPRENTICE - 05/06/2024 4:08 PM WATCH REPAIRER APPRENTICE Hospital Encounter [facility] Operating [address] [place] [phone] Rudy Clements, HUI Discharge Disposition: Discharge to home or self care 04/07/2024 2:40 PM WATCH REPAIRER APPRENTICE Office Visit [facility] Infectious Diseases [address] [place] [phone] Jose Cantu MD Submandibular abscess (Primary Dx) from Last 3 Months Allergies No known active allergies Medications risperiDONE (RisperDAL) 3 mg tabletIndications :mood Take 1 tablet (3 mg total) by mouth nightly Active vilazodone (VIIBRYD) 40 mg tabletIndications :major depressive disorder Take 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 (40 mg total) 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 Active methylphenidate ER (CONCERTA) 27 mg CR tabletIndications :Attention-Defici t Hyperactivity Disorder Take 1 tablet (27 mg total) by mouth every morning 4 Active acetaminophen 500 mg capsule Take 2 capsules (1,000 mg total) by mouth 3 (three) times a day as needed for pain 5 Active Additional Information Patient taking differently:1,000 mg oral 3 times daily PRN,pain, headaches, fever, Informant: Self, Reported on 04/27/2024 ibuprofen (Advil Liqui-GeL) 200 mg tab/cap Take 3 tablet/capsule (600 mg total) by mouth every 6 (six) hours as needed for pain 5 Active amoxicillin-clavu lanate (AUGMENTIN) 875-125 mg per tabletIndications :Upper Respiratory/HEENT Infection,Jaw infection Take 1 tablet by mouth 2 (two) times a day Continue through 4 weeks after jaw hardware/screw removal 60 tablet 3 5 Active atomoxetine (STRATTERA) 40 mg capsuleIndication s:Attention-Defic it Hyperactivity Disorder Take 1 capsule (40 mg total) by mouth every morning Active multivitamin tabletIndications :Vitamin Deficiency Prevention Take 1 tablet 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 Do this 2x a day. 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 Now s/p drainage with ENT. ENT recommends admission for IV antibiotics with OMFS consult to evaluation orthognathic hardware. CT: 3 cm multiloculated lesion in the right submandibular space as detailed above. The lesion may be associated with a screw within the right angle of the mandible that shows periprosthetic lucency and surrounding sclerosis - ENT following, daily irrigation around drain, no more drainage, remove Jose J prior to DC - OMFS consulted and plan on outpatient screw removal in april - Aerobic/Anaerobic culture of abscess (prelim) with mixed organism and Eikenella corrodens - Abx: Unasyn 3 gm Q6h, ID consulted and recommended DC on Augmentin to continue 4 weeks after surgical removal of hardware/screw - prn analgesia, improved pain, so can cont. With prn Tylenol or Advil Anxiety 03/18/2024 Bipolar disorder 03/18/2024 Assessment & Plan (03/18/2024 7:35 AM WATCH REPAIRER APPRENTICE): - Continue Viivaldsuhasdone Abscess 03/17/2024 Immunizations Immunization Administration Dates Next Due Influenza, Trivalent, Preservative Free, Intramu scular 03/19/2024 Social History Tobacco Use Types Packs/Day Years Used Date Smoking Tobacco: Former Cigarettes Vaping Smokeless Tobacco: Never Tobacco Cessation:Counseling Given: Not Answered AUDIT-C Answer Date Recorded Q1: How often do you have a drink containing alcohol? Never 05/06/2024 Q2: How many drinks containi ng alcohol do you have on a typical day when you are drinking? Patient does not drink Q3: How often do you have si x or more drinks on one occasion? Never 05/06/2024 Personal Safety Answer Date Recorded Have you ever been in or are you currently in a harmful physical or emotional relationship or is someone making you feel afraid or unsafe? Denies 05/06/2024 Sex and Gender Information Value Date Recorded Sex Assigned at Not on file Legal Sex Male 5:34 PM WATCH REPAIRER APPRENTICE Gender Identity Not on file Sexual Orientation Not on file Last Filed Vital Signs Vital Sign Reading Time Taken Comments Blood Pressure 134/89 05/19/2024 2:53 PM WATCH REPAIRER APPRENTICE Pulse 69 05/19/2024 2:53 PM WATCH REPAIRER APPRENTICE Temperature 36.6 C (97.9 F) 05/19/2024 2:53 PM WATCH REPAIRER APPRENTICE Respiratory Rate 16 05/06/2024 3:50 PM WATCH REPAIRER APPRENTICE Oxygen Saturation 98% 05/19/2024 2:53 PM WATCH REPAIRER APPRENTICE Inhaled Oxygen Concentration - - Weight 107.5 kg (237 lb) 05/19/2024 2:53 PM WATCH REPAIRER APPRENTICE Height 182.9 cm (6' 0.01 ) 05/19/2024 2:53 PM CS T Body Mass Index 32.14 05/19/2024 2:53 PM WATCH REPAIRER APPRENTICE Plan of Treatment Not on file Procedures Procedure Name Priority Date/Time Associated Diagnosis Comments EGFR Routine 05/19/2024 3:25 PM WATCH REPAIRER APPRENTICE Submandibular abscess DIFFERENTIAL AUTO Routine 05/19/2024 3:2 5 PM WATCH REPAIRER APPRENTICE Submandibular abscess CBC WITH AUTO DIFFERENTIAL Routine 05/19/2024 3:25 PM WATCH REPAIRER APPRENTICE Submandibular abscess COMPREHENSIVE METABOLIC PANEL Routine 05/19/2024 3:25 PM WATCH REPAIRER APPRENTICE Submandibular abscess CRP (ACUTE PHASE) Routine 05/19/2024 3:2 5 PM WATCH REPAIRER APPRENTICE Submandibular abscess ERYTHROCYTE SEDIMENTATION RATE Routine 05/19/2024 3:25 PM WATCH REPAIRER APPRENTICE Submandibular abscess WI AN PROCEDURE PLACEHOLDER Routine 05/06/2024 1:20 PM WATCH REPAIRER APPRENTICE WI AN ELECTIVE ENDOTRACHEAL AIRWAY Routine 05/06/2024 1:20 PM WATCH REPAIRER APPRENTICE REMOVAL HARDWARE - MANDIBLE 05/06/2024 12:21 PM WATCH REPAIRER APPRENTICE Inflammatory reaction due to internal fixation device, unspecified bone, initial encounter Case Notes 04/29 per lolis via phone call, change laterality to RIGHT- RC from Last 3 Months Results * eGFR (05/19/2024 3:25 PM WATCH REPAIRER APPRENTICE) eGFR >90 >=60 mL/min/1. 73 m2 Comment: Interpretive Data Reference Interval Normal >/= 90 mL/min/1.73m2 Mildly decreased* 60 - 89 mL/min/1.73m2 Mildly to moderately decreased 45 - 59 mL/min/1.73m2 Moderately to severely decreased 30 - 44 mL/min/1.73m2 Severely decreased 15 - 29 mL/min/1.73m2 Kidney Failure < 15 mL/min/1.73m2 *Relative to young adult level Estimated glomerular filtration rate is determined by the 2020 CKD-EPI equation recommended by the National Kidney Foundation (A Unifying Approach to GFR Estimation: Recommendations of the NKF-ASK Task Force on Reassessing the Inclusion of Race in Diagnosing Kidney Disease, JASN 2020). The CKD-EPI equation should not be used for patients with unstable renal function and has not been validated in children and those over 70. Current interpretive data was last reviewed 2021. Blood 05/19/2024 3:25 PM WATCH REPAIRER APPRENTICE 05/19/2024 8:36 PM WATCH REPAIRER APPRENTICE us Jose Cantu MD LAB BLOOD ORDERABLES Final Result [facility] Department [place] [address] * Differential, auto (05/19/2024 3:25 PM WATCH REPAIRER APPRENTICE) Neutrophil abs 2.4 1.5 - 6.5 K/cumm Imm gran abs 0.0 0.0 - 0.1 K/cumm [facility] Lymphocyte abs 1.9 0.8 - 3.3 K/cumm [facility] Monocyte abs 0.7 0.2 - 0.8 K/cumm [facility] Eosinophil abs 0.1 0.0 - 0.5 K/cumm [facility] Basophil abs 0.0 0.0 - 0.1 K/cumm [facility] Neutrophil pct 47.1 % [facility] Comment: Interpretive Data Percent cell count reference ranges are not reported, since discordance with absolute values may lead to misinterpretation of CBC data. Current Interpretive Data was last revised on 2017. Imm gran pct 0.4 % [facility] Comment: Interpretive Data Percent cell count reference ranges are not reported, since discordance with absolute values may lead to misinterpretation of CBC data. Current Interpretive Data was last revised on 2017. Lymphocyte pct 37.7 % [facility] Comment: Interpretive Data Percent cell count reference ranges are not reported, since discordance with absolute values may lead to misinterpretation of CBC data. Current Interpretive Data was last revised on 2017. Monocyte pct 13.2 % [facility] Comment: Interpretive Data Percent cell count reference ranges are not reported, since discordance with absolute values may lead to misinterpretation of CBC data. Current Interpretive Data was last revised on 2017. Eosinophil pct 1.2 % [facility] Comment: Interpretive Data Percent cell count reference ranges are not reported, since discordance with absolute values may lead to misinterpretation of CBC data. Current Interpretive Data was last revised on 2017. Basophil pct 0.4 % [facility] Comment: Interpretive Data Percent cell count reference ranges are not reported, since discordance with absolute values may lead to misinterpretation of CBC data. Current Interpretive Data was last revised on 2017. Blood 05/19/2024 3:25 PM WATCH REPAIRER APPRENTICE 05/19/2024 8:29 PM WATCH REPAIRER APPRENTICE us Jose Cantu MD LAB BLOOD ORDERABLES Final Result [facility] [place] [address] * CBC with auto differential (05/19/2024 3:25 PM WATCH REPAIRER APPRENTICE) [facility] WBC 5.1 3.8 - 9.9 K/cumm Hgb 15.7 13.0 - 17.5 g/dL [facility] Hct 44.6 38.9 - 50.3 % [facility] Plt 219 150 - 400 K/cumm [facility] MPV 11.2 9.1 - 12.3 fL [facility] RBC 5.08 4.30 - 5.80 M/cumm [facility] MCV 87.8 81.3 - 96.4 fL [facility] MCH 30.9 27.1 - 33.3 pg [facility] MCHC 35.2 32.3 - 35.7 g/dL [facility] RDW CV 11.4 11.1 - 14.9 % [facility] RDW SD 36.5 35.7 - 48.1 fL [facility] NRBC abs 0.00 0.00 - 0.01 K/cumm [facility] Blood 05/19/2024 3:25 PM WATCH REPAIRER APPRENTICE 05/19/2024 8:29 PM WATCH REPAIRER APPRENTICE Jose Cantu MD LAB BLOOD ORDERABLES Final Result Performing Organization Address [facility] [place] [address] * (ABNORMAL) Erythrocyte sedimentation rate (05/19/2024 3:25 PM WATCH REPAIRER APPRENTICE) [facility] Erythrocyte sedimentation rate 16(H) 1 - 15 mm/hr Blood 05/19/2024 3:25 PM WATCH REPAIRER APPRENTICE 05/19/2024 8:29 PM WATCH REPAIRER APPRENTICE Jose Cantu MD LAB BLOOD ORDERABLES Final Result Performing Organization Address [facility]/[place] [address] * (ABNORMAL) CRP (acute phase) (05/19/2024 3:25 PM WATCH REPAIRER APPRENTICE) Pathologist [facility] CRP 11.8(H) <=10.0 mg/L Blood 05/19/2024 3:25 PM WATCH REPAIRER APPRENTICE 05/19/2024 8:29 PM WATCH REPAIRER APPRENTICE us Jose Cantu MD LAB BLOOD ORDERABLES Final Result [facility] Department [place] [address] * (ABNORMAL) Comprehensive metabolic panel (05/19/2024 3:25 PM WATCH REPAIRER APPRENTICE) [facility] Sodium 141 135 - 145 mmol/L Potassium, pl 4.2 3.3 - 4.9 mmol/L [facility] Chloride 100 97 - 110 mmol/L [facility] CO2 28 22 - 32 mmol/L [facility] Anion gap 13 2 - 15 mmol/L [facility] BUN 10 6 - 25 mg/dL [facility] Creatinine 0.91 0.80 - 1.30 mg/dL [facility] Glucose 67(L) 70 - 199 mg/dL [facility] Comment: Interpretive Data Fasting glucose >/= 126 mg/dl is diagnostic for diabetes. Fasting is defined as no caloric intake for at least 8 hours. Fasting glucose between 100 mg/dl to 125 mg/dl is diagnostic of prediabetes. In a patient with classic symptoms of hyperglycemia or hyperglycemic crisis, a random glucose >/= 200 mg/dl is diagnostic for diabetes. In the absence of unequivocal hyperglycemia, results should be confirmed by repeat testing. The classification and Diagnosis of Diabetes Diabetes Care 2021; 46: S19-S40. Current interpretive data was last revised 2022. Calcium 9.3 8.5 - 10.3 mg/dL [facility] Bilirubin, total 0.3 0.1 - 1.2 mg/dL [facility] Protein, pl 7.8 6.5 - 8.5 g/dL [facility] Albumin 4.3 3.5 - 5.0 g/dL [facility] Alk phos 84 40 - 130 Units/L [facility] ALT 23 7 - 55 Units/L [facility] AST 23 10 - 50 Units/L [facility] Blood 05/19/2024 3:25 PM WATCH REPAIRER APPRENTICE 05/19/2024 8:29 PM WATCH REPAIRER APPRENTICE Jose Cantu MD LAB BLOOD ORDERABLES Final Result [facility] Department [place] [address] * WI AN ELECTIVE ENDOTRACHEAL AIRWAY, WI AN PROCEDURE PLACEHOLDER (05/06/2024 1:20 PM WATCH REPAIRER APPRENTICE) Narrative Cesilia Zeng CRNA - 05/06/2024 1:20 PM WATCH REPAIRER APPRENTICE Cesilia Zeng CRNA 05/06/2024 1:22 PM Airway Patient location: OR Urgency: elective Indications for airway management: anesthesia and airway protection Difficult airway: no Staff: Supervising provider: Eladio Nagy MD Placed by: VARNISH BLENDER: Cesilia Zeng CRNA Emergent airway documentation: Risks and benefits discussed: yes Consent obtained: yes Consent given by: patient Airway prep: Preoxygenated: yes Patient position: sniffing Mask difficulty assessment: 2 - vent by mask + OA or adjuvant Spontaneous ventilation during airway: absent Sedation level during airway: GA Final airway details: Final airway type: endotracheal airway Tube type: LEANDRO tube (nasal re tracheal tube) ETT size: 7.5 mm Cuffed: yes Technique used for successful ETT placement: video laryngoscopy Insertion site: oral Video blade type: Shah Blade size: 4 Cormack-Lehane (video): grade I - full view of glottis Cuff volume: 8 mL Cuff inflated with: air ETT to nares: 27 cm ETT to teeth: 21 cm Placement verified by: auscultation and CO2 detection Airway secured with: silk tape Number of attempts: 1 us Eladio Nagy MD ANESTHESIA ORDERABLE S Final Result from Last 3 Months [place] For more information, please contact: [phone] * Full Code (Latest Code Status on File) Date Activated Date Inactivated Comments 03/18/2024 8:45 AM 03/20/2024 6:10 PM Care Teams Flux Tube Attendant Relationship Specialty Start Date End Date Angelica Jaramillo DO [address] [place] [address] [place] [id number] PCP - General Family Medicine 04/29/24
--- OUTSIDE RECORDS SUMMARY | 2024-07-02 09:13 | XMS_ITS | Patient Health Record ---
Author Organization [facility] As [facility] Address [address] [facility] [address] [place] [address] Care Team Providers Care Medical Unit Secretary Name Role Phone Claudia Jaramillo DOna Primary Care Provider Unavailab Radha Oswald Unavailable [phone] DiannaJeanet Unavailable [phone] Migration, Provider Unavailable Unavailable Allergies No Known [...] NEG 0 - 500 ng/ml Morphine (MOP 300/[id number]) NEG 0 - 300 ng/ml Methadone (MTD) NEG 0 - 300 ng/ml Oxycodone NEG 0 - 300 ng/ml Reason For Referral No Information Medications Medication SIG (Take, Route, Frequency, Duration) Notes Start Date End Date Status Meloxicam 15 MG Oral 08/02/2023 Act rico traZODone HCl 50 MG 1-2 tablets at bedtime Orally Once a day for 30 days As needed for sleep 06/10/2024 Active Vilazodone HCl 40 MG 1 tablet with food Oral Once a day Active Methylphenidate HCl ER (OSM) 36 MG 1 tablet in the morning Orally Once a day for 30 days 06/10/2024 07/10/2024 Active risperiDONE 4 MG 1 tablet Orally Once a day for 30 days Active Social History Tobacco Use: Social History Observation Description Date Details (start date - stop date) Former Smoker 03/18/1997 - 03/18/2009 Sex Assigned At : Social History Observation Description Sex Assigned At Male Tobacco Control (Standard) Question Answer Notes When did you start smoking? 03/18/1997 When did you stop smoking? 03/18/2009 Tobacco use: Former smoker How long has it been since you last smoked? Grea ter than 10 years AUDIT-C (Standard) Question Answer Notes Did you have a drink contain ing alcohol in the past year? Yes How often did you have six o r more drinks on one occasion in the past year? Less than monthly (1 point) How many drinks did you have on a typical day when you were drinking in the past year? 5 or 6 drinks (2 points) How often did you have a dri nk containing alcohol in the past year? 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) Marriage and Sexuality What is your relationship status?: Are you sexually active?: No Do you use protection during sex?: No How many children do you have?: 1 Home and Environment Are there any guns present in your home?: No Advance Directive Do you have an advance directive?: No Do you have a medical power of business attorney?: No Social History Substance Use Do [...] Master's degree (e.g., TAISHA, , Noemy, MEd, BOARD CATCHER, ISHMAEL) Are you currently employed?: Yes 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) Marriage and Sexuality What is your relationship status?: Are you sexually active?: No Do you use protection during sex?: No How many children do you have?: 1 Home and Environment Are there any guns present in your home?: No Advance Directive Do you have an advance directive?: No Do you have a medical power of business attorney?: No Social History Substance Use Do [...] Master's degree (e.g., TAISHA, MS, Noemy, MEd, BOARD CATCHER, ISHMAEL) Are you currently employed?: Yes 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) Marriage and Sexuality What is your relationship status?: Are you sexually active?: No Do you use protection during sex?: No How many children do you have?: 1 Home and Environment Are there any guns present in your home?: No Advance Directive Do you have an advance directive?: No Do you have a medical power of business attorney?: No Social History Substance Use Do [...] Master's degree (e.g., TAISHA, , Noemy, MEd, BOARD CATCHER, ISHMAEL) Are you currently employed?: Yes 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) Marriage and Sexuality What is your relationship status?: Are you sexually active?: No Do you use protection during sex?: No How many children do you have?: 1 Home and Environment Are there any guns present in your home?: No Advance Directive Do you have an advance directive?: No Do you have a medical power of business attorney?: No Social History Substance Use Do [...] Master's degree (e.g., TAISHA, , Noemy, MEd, BOARD CATCHER, ISHMAEL) Are you currently employed?: Yes 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) Marriage and Sexuality What is your relationship status?: Are you sexually active?: No Do you use protection during sex?: No How many children do you have?: 1 Home and Environment Are there any guns present in your home?: No Advance Directive Do you have an advance directive?: No Do you have a medical power of business attorney?: No Social History Substance Use Do [...] Master's degree (e.g., MA, MS, Noemy, MEd, BOARD CATCHER, ISHMAEL) Are you currently employed?: Yes 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) Marriage and Sexuality What is your relationship status?: Are you sexually active?: No Do you use protection during sex?: No How many children do you have?: 1 Home and Environment Are there any guns present in your home?: No Advance Directive Do you have an advance directive?: No Do you have a medical power of business attorney?: No Problems Problem Type SNOMED Code ICD Code Onset Dates Problem Status W/U Status Risk Notes Problem Depressed bipolar I disorder in remission (37634443) Bipolar disorder, in partial remission, most recent episode depressed (F31.75) Active confirmed Problem Generalized anxiety disorder (67076120) Generalized anxiety disorder (F41.1) 08/02/19 24 Active confirmed Problem Attention deficit hyperactivity disorder, combined type (39338430) Attention-deficit hyperactivity disorder, combined type (F90.2) 08/02/19 24 Active confirmed Problem Insomnia disorder 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 disorder (69671181) Insomnia 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 disorder (F51.05) Active confirmed Problem Nondependent alcohol abuse in remission (472578110) History of alcohol abuse (F10.11) Active confirmed Vital Signs Heart Rate 59 /min 06/10/2024 Height-cm 182.88 cm 06/10/2024 Blood pressure diastolic 76 mm Hg 06/10/2024 Weight-kg 108.41 kg 06/10/2024 Height 72.00 in 06/10/2024 Blood pressure systolic 117 mm Hg 06/10/2024 Weight 239 lbs 06/10/2024 BMI 32.41 kg/m2 06/10/2024 Encounters Encounter Location Date Provider Diagnosis [facility] [place] [id number] [address] 06/10/2024 Radha Salas Bipolar disorder, in partial remission, most recent episode depressed F31.75 ; Insomnia 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 disorder F51.05 ; Generalized anxiety disorder F41.1 ; History of alcohol abuse F10.11 ; Encounter for screening for cardiovascular disorders Z13.6 ; Encounter for screening for depression Z13.31 and Attention-deficit hyperactivity disorder, combined type F90.2 [facility] [place] [address] [address] 07/04/2023 Whitney Dianna Attention-deficit hyperactivity disorder, combined type F90.2 ; Alcohol abuse, uncomplicated F10.10 ; Generalized anxiety disorder F41.1 and Bipolar disorder, unspecified F31.9 [facility] [place] [address] [address] 08/02/2023 Whitney Dianna Attention-deficit hyperactivity disorder, combined type F90.2 ; Generalized anxiety disorder F41.1 ; Alcohol abuse, uncomplicated F10.10 and Bipolar disorder, unspecified F31.9 [facility] [address] [address] 08/27/2023 Whitney Dianna Attention-deficit hyperactivity disorder, combined type F90.2 ; Generalized anxiety disorder F41.1 ; Bipolar disorder, unspecified F31.9 and History of alcohol abuse F10.11 [facility] [address] [address] 10/04/2023 Whitney Bustamante Attention-deficit hyperactivity disorder, combined type F90.2 ; Generalized anxiety disorder F41.1 ; Bipolar disorder, unspecified F31.9 and History of alcohol abuse F10.[address] [address] 11/08/2023 Whitney Bustamante Attention-deficit hyperactivity disorder, combined type F90.2 ; Generalized anxiety disorder F41.1 ; Bipolar disorder, unspecified F31.9 and History of alcohol abuse F10.[address] [address] 01/10/2024 Whitney Bustamante Attention-deficit hyperactivity disorder, combined type F90.2 ; Generalized anxiety disorder F41.1 ; Bipolar disorder, unspecified F31.9 and History of alcohol abuse F10.[address] [address] 04/03/2024 Radha Salas Attention-deficit hyperactivity disorder, combined type F90.2 ; Bipolar disorder, unspecified F31.9 ; Generalized anxiety disorder F41.1 and History of alcohol abuse F10.[address] [address] 07/19/2023 Provider Migration [address] [address] 08/03/2023 Provider Migration [address] [address] 08/04/2023 Provider Migration [address] [address] 06/05/2024 Radha Salas Generalized anxiety disorder F41.1 Assessments Encounter Date Diagnosis (ICD Code) Assessment [...] play a role in sx; have discussed 07/04/2023 Alcohol abuse, uncomplicated (ICD-10 - F10.10) [...] avoid cannabis/alcohol UDS: neg, does not test methylphenidat e, send for conf, reports did take stim today tolerated stopping atomoxetine. afternoon concerta not as effective, consider increase. Though pulse has been increasing particularly if look back to June-though that may have been low reading, and today also sick. Discuss monitor pulse at home. do this prior to consider increase/barrow e for better afternoon coverage. Will view log and recheck pulse/BP next visit. f/u 1 month, earlier if concerns -discussed transition to new provider as I am leaving the practice after this month notes: -BO/AHUJA testing supported ADHD combined dx -Diff: consider if undiagnosed autism may play a role in sx; have discussed 04/03/2024 Bipolar disorder, unspecified (ICD-10 - F31.9) Bipolar Disorder - Some depressive feelings when in basement due to lack of human contact and windows - Some irritability and easily angered, better than before - issues sleeping Plan: - Increase risperidone to 4 mg at bedtime ADHD - Concerta 27 mg initially effective but now less effective - Persistent concentration problems at work and meetings Plan: - Increase Concerta dosage to 36 mg daily - Monitor for effectiveness and side effects, monitor sleep Anxiety - Overall good anxiety levels Plan: - Continue vilazodone 40 mg daily - Encourage maintaining therapy sessions Alcohol abuse history - Sober since March 17, 2023 - No changes in social history or substance use Plan: - Encourage continuing therapy sessions with Ekta Paul for addiction support - Reinforce importance of maintaining sobriety Follow-up in 8 weeks, sooner if concerns arise 06/05/2024 Generalized anxiety disorder (ICD-10 - F41.1) 06/10/2024 Bipolar disorder, in partial remission, most recent episode depressed (ICD-10 - F31.75) Bipolar Disorder - Some depressive feelings when in basement due to lack of human contact and windows - Some irritability and easily angered, better than before - issues sleeping Plan: - Increase risperidone to 4 mg at bedtime ADHD - Concerta 27 mg initially effective but now less effective - Persistent concentration problems at work and meetings Plan: - Increase Concerta dosage to 36 mg daily - Monitor for effectiveness and side effects, monitor sleep Anxiety - Overall good anxiety levels Plan: - Continue vilazodone 40 mg daily - Encourage maintaining therapy sessions Alcohol abuse history - Sober since March 17, 2023 - No changes in social history or substance use Plan: - Encourage continuing therapy sessions with Ekta Paul for addiction support - Reinforce importance of maintaining sobriety Follow-up in 8 weeks, sooner if concerns arise 04/03/2024 Attention-defici t hyperactivity disorder, combined type (ICD-10 - F90.2) Bipolar Disorder - Some depressive feelings when in basement due to lack of human contact and windows - Some irritability and easily angered, better than before - issues sleeping Plan: - Increase risperidone to 4 mg at bedtime ADHD - Concerta 27 mg initially effective but now less effective - Persistent concentration problems at work and meetings Plan: - Increase Concerta dosage to 36 mg daily - Monitor for effectiveness and side effects, monitor sleep Anxiety - Overall good anxiety levels Plan: - Continue vilazodone 40 mg daily - Encourage maintaining therapy sessions Alcohol abuse history - Sober since March 17, 2023 - No changes in social history or substance use Plan: - Encourage continuing therapy sessions with Ekta Paul for addiction support - Reinforce importance of maintaining sobriety Follow-up in 8 weeks, sooner if concerns arise 04/03/2024 Generalized anxiety disorder (ICD-10 - F41.1) Bipolar Disorder - Some depressive feelings when in basement due to lack of human contact and windows - Some irritability and easily angered, better than before - issues sleeping Plan: - Increase risperidone to 4 mg at bedtime ADHD - Concerta 27 mg initially effective but now less effective - Persistent concentration problems at work and meetings Plan: - Increase Concerta dosage to 36 mg daily - Monitor for effectiveness and side effects, monitor sleep Anxiety - Overall good anxiety levels Plan: - Continue vilazodone 40 mg daily - Encourage maintaining therapy sessions Alcohol abuse history - Sober since March 17, 2023 - No changes in social history or substance use Plan: - Encourage continuing therapy sessions with Ekta Paul for addiction support - Reinforce importance of maintaining sobriety Follow-up in 8 weeks, sooner if concerns arise 01/10/2024 Generalized anxiety disorder (ICD-10 - F41.1) [...] 40mg daily, take with food recommend counseling 06/10/2024 Insomnia 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 disorder (ICD-10 - F51.05) Bipolar Disorder - Some depressive feelings when in basement due to lack of human contact and windows - Some irritability and easily angered, better than before - issues sleeping Plan: - Increase risperidone to 4 mg at bedtime ADHD - Concerta 27 mg initially effective but now less effective - Persistent concentration problems at work and meetings Plan: - Increase Concerta dosage to 36 mg daily - Monitor for effectiveness and side effects, monitor sleep Anxiety - Overall good anxiety levels Plan: - Continue vilazodone 40 mg daily - Encourage maintaining therapy sessions Alcohol abuse history - Sober since March 17, 2023 - No changes in social history or substance use Plan: - Encourage continuing therapy sessions with Ekta Paul for addiction support - Reinforce importance of maintaining sobriety Follow-up in 8 weeks, sooner if concerns arise 08/27/2023 History of alcohol abuse (ICD-10 - [...] rule out MDD with substance and/or ADHD 04/03/2024 History of alcohol abuse (ICD-10 - F10.11) Bipolar Disorder - Some depressive feelings when in basement due to lack of human contact and windows - Some irritability and easily angered, better than before - issues sleeping Plan: - Increase risperidone to 4 mg at bedtime ADHD - Concerta 27 mg initially effective but now less effective - Persistent concentration problems at work and meetings Plan: - Increase Concerta dosage to 36 mg daily - Monitor for effectiveness and side effects, monitor sleep Anxiety - Overall good anxiety levels Plan: - Continue vilazodone 40 mg daily - Encourage maintaining therapy sessions Alcohol abuse history - Sober since March 17, 2023 - No changes in social history or substance use Plan: - Encourage continuing therapy sessions with Ekta Paul for addiction support - Reinforce importance of maintaining sobriety Follow-up in 8 weeks, sooner if concerns arise 06/10/2024 Generalized anxiety disorder (ICD-10 - F41.1) Bipolar Disorder - Some depressive feelings when in basement due to lack of human contact and windows - Some irritability and easily angered, better than before - issues sleeping Plan: - Increase risperidone to 4 mg at bedtime ADHD - Concerta 27 mg initially effective but now less effective - Persistent concentration problems at work and meetings Plan: - Increase Concerta dosage to 36 mg daily - Monitor for effectiveness and side effects, monitor sleep Anxiety - Overall good anxiety levels Plan: - Continue vilazodone 40 mg daily - Encourage maintaining therapy sessions Alcohol abuse history - Sober since March 17, 2023 - No changes in social history or substance use Plan: - Encourage continuing therapy sessions with Ekta Paul for addiction support - Reinforce importance of maintaining sobriety Follow-up in 8 weeks, sooner if concerns arise 11/08/2023 History of alcohol abuse (ICD-10 - F10.11) no usehx intermittent problematic userecommend continue to abstain from alcohol is looking into [facility] program 01/10/2024 History of alcohol abuse (ICD-10 - F10.11) no usehx intermittent problematic userecommend continue to abstain from alcohol is attending [facility] meetings 10/04/2023 History of alcohol abuse (ICD-10 - F10.11) no usehx intermittent problematic userecommend continue to abstain from alcohol 06/10/2024 History of alcohol abuse (ICD-10 - F10.11) Bipolar Disorder - Some depressive feelings when in basement due to lack of human contact and windows - Some irritability and easily angered, better than before - issues sleeping Plan: - Increase risperidone to 4 mg at bedtime ADHD - Concerta 27 mg initially effective but now less effective - Persistent concentration problems at work and meetings Plan: - Increase Concerta dosage to 36 mg daily - Monitor for effectiveness and side effects, monitor sleep Anxiety - Overall good anxiety levels Plan: - Continue vilazodone 40 mg daily - Encourage maintaining therapy sessions Alcohol abuse history - Sober since March 17, 2023 - No changes in social history or substance use Plan: - Encourage continuing therapy sessions with Ekta Paul for addiction support - Reinforce importance of maintaining sobriety Follow-up in 8 weeks, sooner if concerns arise 06/10/2024 Encounter for screening for cardiovascular disorders (ICD-10 - Z13.6) Bipolar Disorder - Some depressive feelings when in basement due to lack of human contact and windows - Some irritability and easily angered, better than before - issues sleeping Plan: - Increase risperidone to 4 mg at bedtime ADHD - Concerta 27 mg initially effective but now less effective - Persistent concentration problems at work and meetings Plan: - Increase Concerta dosage to 36 mg daily - Monitor for effectiveness and side effects, monitor sleep Anxiety - Overall good anxiety levels Plan: - Continue vilazodone 40 mg daily - Encourage maintaining therapy sessions Alcohol abuse history - Sober since March 17, 2023 - No changes in social history or substance use Plan: - Encourage continuing therapy sessions with Ekta Paul for addiction support - Reinforce importance of maintaining sobriety Follow-up in 8 weeks, sooner if concerns arise 06/10/2024 Encounter for screening for depression (ICD-10 - Z13.31) Bipolar Disorder - Some depressive feelings when in basement due to lack of human contact and windows - Some irritability and easily angered, better than before - issues sleeping Plan: - Increase risperidone to 4 mg at bedtime ADHD - Concerta 27 mg initially effective but now less effective - Persistent concentration problems at work and meetings Plan: - Increase Concerta dosage to 36 mg daily - Monitor for effectiveness and side effects, monitor sleep Anxiety - Overall good anxiety levels Plan: - Continue vilazodone 40 mg daily - Encourage maintaining therapy sessions Alcohol abuse history - Sober since March 17, 2023 - No changes in social history or substance use Plan: - Encourage continuing therapy sessions with Ekta Paul for addiction support - Reinforce importance of maintaining sobriety Follow-up in 8 weeks, sooner if concerns arise 06/10/2024 Attention-defici t hyperactivity disorder, combined type (ICD-10 - F90.2) Bipolar Disorder - Some depressive feelings when in basement due to lack of human contact and windows - Some irritability and easily angered, better than before - issues sleeping Plan: - Increase risperidone to 4 mg at bedtime ADHD - Concerta 27 mg initially effective but now less effective - Persistent concentration problems at work and meetings Plan: - Increase Concerta dosage to 36 mg daily - Monitor for effectiveness and side effects, monitor sleep Anxiety - Overall good anxiety levels Plan: - Continue vilazodone 40 mg daily - Encourage maintaining therapy sessions Alcohol abuse history - Sober since March 17, 2023 - No changes in social history or substance use Plan: - Encourage continuing therapy sessions with Ekta Paul for addiction support - Reinforce importance of maintaining sobriety Follow-up in 8 weeks, sooner if concerns arise 08/27/2023 Other 10/04/2023 Other Methylphenidate Extended Release Oral Tablet (METHYLPHENIDATE SUSTAINED-ACTION, OSMOTIC - ORAL) material was published Plan Of Treatment Next Appt Details Provider Name:Radha martinez, 07/22/2024 01:15:00 PM, [address] [facility] [address], [place], [address], Insurance Providers Payer Name Payer Address Payer Phone Subscriber Number Group Number Insured Name Patient Relationship to Insured Coverage Start Date Coverage End Date [facility] [address] [place] [phone] [id number] JAMES VILLANUEVA Self - patient is the insured Medical (General) History Medical History History ICD Code Attention deficit hyperactivity disorder , combined type History of alcohol abuse Past Psychiatric History: Anxiety Disord er,Bipolar Disorder Surgical History Surgery Date(Month/Year) Other jaw 04/18/2002 Hospitalization History Reason Date(Month/Year) infection, right jaw abscess from prior screws 02/2024
--- OUTSIDE RECORDS SUMMARY | 2024-07-02 09:13 | XMS_ITS | Data Portability ---
Author Organization [place] [facility], Main Office Address [address] [place] [address] Care Team Providers Care Rail Tractor Operator Name Role Phone NILES GLEZ Primary Care Provider NILES GLEZ Referring Provider [phone] Assessment Encounter Date Assessment Date Assessment LastModified [...] pt for R knee. Thanks 2023 024 [facility], [address], [place], [address], 16:09:16 Procedures None recorded. Surgeries None recorded. Imaging MRI, knee, w/o contrast 2023 024 [facility], [address], [place], [address], 13:45:13 MRI, knee, w/o contrast [address], [address] [place] [address] Dr, [facility] [address], [place], [address], 16:03:15 Medication Orders Mobic 15 mg tablet 2023 024 [email or web address] [address] [facility], [address], [place], [address], 14:31:07 Patient TargetsNo targets recorded. Patient InstructionsNo [...] XR, knee No observ ation record ed. [email or web address] Not Available 2023 08:23:28 06/20/1905/14/2023 XR, knee, 4 or more view No observ ation record ed. [email or web address] Not Available 06/2023 11:41:12 07/23/19 24 07/23/2023 MRI, knee, w/o contr ast No observ ation record ed. [facility] [address] [place], [address], 07/23/2023 16:44:49 Result Notes None recorded. Problems Name Problem SNOMED Code Status Onset Date Resolution Date Notes Provider Name and Address Organization Details Recorded Time Pain of right knee joint [id number] Active 2023 ORVILLE Nguyen [facility] 09:11:57 Problem Notes None recorded. Procedures Surgical History Date Name Laterality Status Provider Name and Address Organization Details Recorded Time recession of prognathic jaw completed ORVILLE Nguyen [employer] [facility] 05/17/2023 09:11:26 Imaging Results Imaging Date Name Status LastModified by Organiz ation Details LastModified Time 05/14/2023 XR, knee completed [email or web address] Information no t available 05/22/2023 08:23:28 05/14/2023 XR, knee, 4 or more view completed [email or web address] Information not available 06/20/2023 11:41:12 07/23/2023 MRI, knee, w/o contrast completed [email or web address] [facility] [address] [place], [address], 07/23/2023 16:44:49 Procedure Notes None recorded. Medical [...] height Body mass index (BMI) Body weight Pain severity - 0-10 verbal numeric rating [Score] - Reported Provider Name and Address Organization Details Last Updated DateTime 05/17/2023 182.88 cm 31.5 kg/m2 887603.43 g 7 ORVILLE Nguyen [facility] [employer] 05/17/2023 09:09:45 Date Recorded Body height Body mass index (BMI) Body weight Pain severity - 0-10 verbal numeric rating [Score] - Reported Provider Name and Address Organization Details Last Updated DateTime 07/10/2023 182.88 cm 32.5 kg/m2 902300.17 g 2 ORVILLE Nguyen [facility] [employer] 07/10/2023 14:45:05 Date Recorded Body height Body mass index (BMI) Body weight Provider Name and Address Organization Details Last Updated DateTime 07/24/2023 182.88 cm 31.3 kg/m2 548908.84 g Charlotte Peguero ATC L [facility] [employer] 07/24/2023 15:21:09 Social History Question Answer Notes LastModified by Organizat ion Details LastModified Time Tobacco Smoking Status Never Smoker [facility] [employer] 05/17/2023 09:10:54 What Is Your Level Of Alcohol Consumption? None [email or web address] Information not available 05/17/2023 What Was The Date Of Your Most Recent Tobacco Screening? 05/17/2023 [email or web address] Information not available 05/17/2023 Sex: Unknown Functional Status None recorded. Mental Status None recorded. Family History Relationship Description Onset Age of this Age Resolved Age Notes LastModified by Organization Details LastModified Time Mother Family history of malignant neoplasm [email or web address] Not available 2023 09:10:35 Medical History No medical history recorded. Past Encounters Encounter ID Performer Location Encounter Start Date Encounter Closed Date Diagnosis/Indication Diagnosis SNOMED-CT Code Diagnosis ICD10 Code Diagnosis Note [id number] Anju Albright NP [facility] [place] [address] [place] [address] 05/17/2023 08:55:33 05/17/2023 09:53:54 Pain of right knee joint 8761814487 60259 M25.814 [id number] Yann Davis MD [facility] [place] [address] [place] [address] 07/10/2023 14:42:47 07/10/2023 16:17:47 Pain of right knee joint 6865961696 20011 M25.509 [id number] Yann Davis MD [facility] [place] [address] [place] [address] 07/24/2023 15:19:30 07/24/2023 15:40:06 Pain of right knee joint 6004171269 00724 M25.561 Health Concerns Section Related Observation LastModified by Organization Detai ls LastModified Time None Recorded Concern Status LastModified by Organization Details LastModified Time None Recorded Advance Directives Directive None Recorded Payers Encounter Date Sequence Insurance Name Policy Number Policy Mason Covered Member ID Mason Member ID Guarantor Name 05/17/2023 1 [place] [id number] Jimi Bee [id number] Jimi Bee 07/10/2023 1 [id number] Jimi Bee [id number] Jimi Bee 07/24/2023 1 [place] [id number] Jimi Bee [id number] Jimi Bee
--- OUTSIDE RECORDS SUMMARY | 2024-07-02 09:14 | XMS_ITS | Clinical Summary ---
Author Organization [facility] Address [address] [place] [address] Care Team Providers Care Lubricator Granulator Name Role Phone Angelica Jaramillo DO Primary Care Provider [phone] Allergies No known active allergies Medications risperiDONE (RisperDAL) 3 mg tabletIndications :mood Take 1 tablet (3 mg total) by mouth nightly Active vilazodone (VIIBRYD) 40 mg tabletIndications :major depressive disorder Take 1 tablet (40 mg total) by mouth dental hygiene teacher before breakfast Active methylphenidate ER (CONCERTA) 27 [...] Deficiency Prevention Take 1 tablet by mouth dental hygiene teacher before breakfast Active chlorhexidine (PERIDEX) 0.12 % [...] 03/18/2024 Assessment & Plan (03/20/2024 1:08 PM LUBRICATOR GRANULATOR): Presented to OSH with odynophagia, imaging there showed submandibular abscess and transferred to [facility] for ENT evaluation. Now s/p drainage with [...] irrigation around drain, no more drainage, remove Jupiter prior to DC - OMFS consulted and [...] 03/18/2024 Assessment & Plan (03/18/2024 7:35 AM LUBRICATOR GRANULATOR): - Continue alpesh [place]cott Abscess 03/17/2024 Encounters Date Type Department Care Team Description 05/19/2024 3:27 PM LUBRICATOR GRANULATOR - 05/19/2024 11:59 PM LUBRICATOR GRANULATOR Hospital Encounter [facility] [address] [place] [address] Discharge Disposition: Discharge to home or self care 05/19/2024 3:00 PM LUBRICATOR GRANULATOR Office Visit [facility] Infectious Diseases [address] [place] [phone] Jose Cantu MD Submandibular abscess (Primary Dx) 05/19/2024 Orders Only [facility] Infectious Diseases [address] [place] [phone] Jose Cantu MD Submandibular abscess 05/06/2024 12:17 PM LUBRICATOR GRANULATOR Anesthesia Event [facility] [address] [place] [phone] Eladio Nagy MD Smith, Christine A., NP 05/06/2024 11:10 AM LUBRICATOR GRANULATOR - 05/06/2024 1:35 PM LUBRICATOR GRANULATOR Surgery [facility] [address] [place] [address] Rudy Clements DMD REMOVAL HARDWARE - MANDIBLE 05/06/2024 9:06 AM LUBRICATOR GRANULATOR - 05/06/2024 4:08 PM LUBRICATOR GRANULATOR Hospital Encounter [facility] [address] [place] [phone] Rudy Clements DMD Discharge Disposition: Discharge to home or self care 04/07/2024 2:40 PM LUBRICATOR GRANULATOR Office Visit [facility] Infectious Diseases [address] [place] [phone] Jose Cantu MD Submandibular abscess (Primary Dx) from Last 3 Months Immunizations Immunization Administration Dates Next Due Influenza, Trivalent, Preservative Free, Intramu scular 03/19/2024 Surgical History Surgery Date Site/Laterality Comments MANDIBLE SURGERY 03/18/2002 - 03/17/2003 jaw surgery Medical History Medical History Date Comments Motion sickness Family History Medical History Relation Name Comments Anesthesia problems Neg Hx Social History Tobacco Use Types Packs/Day Years [...] on file Legal Sex Male 5:34 PM LUBRICATOR GRANULATOR Gender Identity Not on file Sexual Orientation Not on file Obstetrics History Last Filed Vital Signs Vital Sign Reading Time Taken Comments Blood Pressure 134/89 05/19/2024 2:53 PM LUBRICATOR GRANULATOR Pulse 69 05/19/2024 2:53 PM LUBRICATOR GRANULATOR Temperature 36.6 C (97.9 F) 05/19/2024 2:53 PM LUBRICATOR GRANULATOR Respiratory Rate 16 05/06/2024 3:50 PM LUBRICATOR GRANULATOR Oxygen Saturation 98% 05/19/2024 2:53 PM LUBRICATOR GRANULATOR Inhaled Oxygen Concentration - - Weight 107.5 kg (237 lb) 05/19/2024 2:53 PM LUBRICATOR GRANULATOR Height 182.9 cm (6' 0.01 ) 05/19/2024 2:53 PM CS T Body Mass Index 32.14 05/19/2024 2:53 PM LUBRICATOR GRANULATOR Plan of Treatment Health Maintenance Due Date Last Done Comments Depression Screening 1981 Hepatitis C Screening 1981 Varicella Vaccines (1 of 2 - 13+ 2-dose series) 1994 Hepatitis B Screening 12/28/1999 Regular Well Visit/Exam 18-64 12/28/1999 DTaP/Tdap/Td Vaccine (2 - Td or Tdap) 12/20/2028 12/20/2018 Influenza Vaccine Completed 03/19/2024, 12/20/2018 HPV Vaccines Aged Out No longer eligi ble based on patient's age to complete this topic Pneumococcal vaccine <65 Aged Out No longer eligible based on patient's age to complete this topic Procedures Procedure Name Priority Date/Time Associated Diagnosis Comments EGFR Routine 05/19/2024 3:25 PM LUBRICATOR GRANULATOR Submandibular abscess DIFFERENTIAL AUTO Routine 05/19/2024 3:2 5 PM LUBRICATOR GRANULATOR Submandibular abscess CBC WITH AUTO DIFFERENTIAL Routine 05/19/2024 3:25 PM LUBRICATOR GRANULATOR Submandibular abscess COMPREHENSIVE METABOLIC PANEL Routine 05/19/2024 3:25 PM LUBRICATOR GRANULATOR Submandibular abscess CRP (ACUTE PHASE) Routine 05/19/2024 3:2 5 PM LUBRICATOR GRANULATOR Submandibular abscess ERYTHROCYTE SEDIMENTATION RATE Routine 05/19/2024 3:25 PM LUBRICATOR GRANULATOR Submandibular abscess DC AN PROCEDURE PLACEHOLDER Routine 05/06/2024 1:20 PM LUBRICATOR GRANULATOR DC AN ELECTIVE ENDOTRACHEAL AIRWAY Routine 05/06/2024 1:20 PM LUBRICATOR GRANULATOR REMOVAL HARDWARE - MANDIBLE 05/06/2024 12:21 PM LUBRICATOR GRANULATOR Inflammatory reaction due to internal fixation device, unspecified bone, initial encounter Case Notes 04/29 per lolis via phone call, change laterality to RIGHT- RC from Last 3 Months Results * eGFR (05/19/2024 3:25 PM LUBRICATOR GRANULATOR) eGFR >90 >=60 mL/min/1. 73 m2 Comment: [...] last reviewed 2021. Blood 05/19/2024 3:25 PM LUBRICATOR GRANULATOR 05/19/2024 8:36 PM LUBRICATOR GRANULATOR us Jose Cantu MD LAB BLOOD ORDERABLES Final Result [facility] [place] [address] * Differential, auto (05/19/2024 3:25 PM LUBRICATOR GRANULATOR) Neutrophil abs 2.4 1.5 - 6.5 K/cumm Imm gran abs 0.0 0.0 - 0.1 K/cumm [facility] Lymphocyte abs 1.9 0.8 - 3.3 K/cumm [facility] Monocyte abs 0.7 0.2 - 0.8 K/cumm [facility] Eosinophil abs 0.1 0.0 - 0.5 K/cumm [facility] Basophil abs 0.0 0.0 - 0.1 K/cumm [facility] Neutrophil pct 47.1 % [facility] Comment: Interpretive Data Percent cell count reference ranges are not reported, since discordance with absolute values may lead to misinterpretation of CBC data. Current Interpretive Data was last revised on 2017. Imm gran pct 0.4 % [facility] Comment: Interpretive Data Percent cell count reference ranges are not reported, since discordance with absolute values may lead to misinterpretation of CBC data. Current Interpretive Data was last revised on 2017. Lymphocyte pct 37.7 % [facility] Comment: Interpretive Data Percent cell count reference ranges are not reported, since discordance with absolute values may lead to misinterpretation of CBC data. Current Interpretive Data was last revised on 2017. Monocyte pct 13.2 % [facility] Comment: Interpretive Data Percent cell count reference ranges are not reported, since discordance with absolute values may lead to misinterpretation of CBC data. Current Interpretive Data was last revised on 2017. Eosinophil pct 1.2 % [facility] Comment: Interpretive Data Percent cell count reference ranges are not reported, since discordance with absolute values may lead to misinterpretation of CBC data. Current Interpretive Data was last revised on 2017. Basophil pct 0.4 % [facility] Comment: Interpretive Data Percent cell count reference ranges are not reported, since discordance with absolute values may lead to misinterpretation of CBC data. Current Interpretive Data was last revised on 2017. Blood 05/19/2024 3:25 PM LUBRICATOR GRANULATOR 05/19/2024 8:29 PM LUBRICATOR GRANULATOR Jose Cantu MD LAB BLOOD ORDERABLES Final Result Performing Organization Address City/[facility]/ZIP Co de Phone Number [facility] Department [place] [address] * CBC with auto differential (05/19/2024 3:25 PM LUBRICATOR GRANULATOR) WBC 5.1 3.8 - 9.9 K/cumm Hgb 15.7 13.0 - 17.5 g/dL [facility] Hct 44.6 38.9 - 50.3 % [facility] Plt 219 150 - 400 K/cumm [facility] MPV 11.2 9.1 - 12.3 fL [facility] RBC 5.08 4.30 - 5.80 M/cumm [facility] MCV 87.8 81.3 - 96.4 fL [facility] MCH 30.9 27.1 - 33.3 pg [facility] MCHC 35.2 32.3 - 35.7 g/dL [facility] RDW CV 11.4 11.1 - 14.9 % [facility] RDW SD 36.5 35.7 - 48.1 fL [facility] NRBC abs 0.00 0.00 - 0.01 K/cumm [facility] Blood 05/19/2024 3:25 PM LUBRICATOR GRANULATOR 05/19/2024 8:29 PM LUBRICATOR GRANULATOR Jose Cantu MD LAB BLOOD ORDERABLES Final Result [facility] [place] [place] [address] * (ABNORMAL) Erythrocyte sedimentation rate (05/19/2024 3:25 PM LUBRICATOR GRANULATOR) [facility] Erythrocyte sedimentation rate 16(H) 1 - 15 mm/hr Blood 05/19/2024 3:25 PM LUBRICATOR GRANULATOR 05/19/2024 8:29 PM LUBRICATOR GRANULATOR Jose Cantu MD LAB BLOOD ORDERABLES Final Result Performing Organization Address [facility] [place] [address] * (ABNORMAL) CRP (acute phase) (05/19/2024 3:25 PM LUBRICATOR GRANULATOR) [facility] CRP 11.8(H) <=10.0 mg/L Blood 05/19/2024 3:25 PM LUBRICATOR GRANULATOR 05/19/2024 8:29 PM LUBRICATOR GRANULATOR Jose Cantu MD LAB BLOOD ORDERABLES Final Result Performing Organization Address [facility] de Phone Number [facility] [place] [address] * (ABNORMAL) Comprehensive metabolic panel (05/19/2024 3:25 PM LUBRICATOR GRANULATOR) [facility] Sodium 141 135 - 145 mmol/L Potassium, pl 4.2 3.3 - 4.9 mmol/L [facility] Chloride 100 97 - 110 mmol/L [facility] CO2 28 22 - 32 mmol/L [facility] Anion gap 13 2 - 15 mmol/L [facility] BUN 10 6 - 25 mg/dL [facility] Creatinine 0.91 0.80 - 1.30 mg/dL [facility] Glucose 67(L) 70 - 199 mg/dL [facility] Comment: Interpretive Data Fasting glucose >/= 126 [...] 2022. Calcium 9.3 8.5 - 10.3 mg/dL [facility] Bilirubin, total 0.3 0.1 - 1.2 mg/dL [facility] Protein, pl 7.8 6.5 - 8.5 g/dL [facility] Albumin 4.3 3.5 - 5.0 g/dL [facility] Alk phos 84 40 - 130 Units/L [facility] ALT 23 7 - 55 Units/L [facility] AST 23 10 - 50 Units/L [facility] Blood 05/19/2024 3:25 PM LUBRICATOR GRANULATOR 05/19/2024 8:29 PM LUBRICATOR GRANULATOR Jose Cantu MD LAB BLOOD ORDERABLES Final Result [facility] [place] [address] * DC AN ELECTIVE ENDOTRACHEAL AIRWAY, DC AN PROCEDURE PLACEHOLDER (05/06/2024 1:20 PM LUBRICATOR GRANULATOR) Narrative Cesilia Zeng CRNA - 05/06/2024 1:20 PM LUBRICATOR GRANULATOR Cesilia Zeng CRNA 05/06/2024 1:22 PM Airway Patient location: OR Urgency: elective Indications for airway management: anesthesia and airway protection Difficult airway: no Staff: Supervising provider: Eladio Nagy MD Placed by: CHECO: Cesilia Zeng CRNA Emergent airway documentation: Risks [...] Final Result from Last 3 Months Insurance [employer] [facility] Advance Directives For more information, please contact: [phone] * Full Code (Latest Code Status on File) Date Activated Date Inactivated Comments 03/18/2024 8:45 AM 03/20/2024 6:10 PM Care Teams Lubricator Granulator Relationship Specialty Start Date End Date Angelica Jaramillo DO [facility] [address] [place] [address] PCP - General Family Medicine 04/29/24
--- OUTSIDE RECORDS SUMMARY | 2024-07-02 09:14 | XMS_ITS | Encounter Summary ---
Author Organization [facility] [employer] Address [address] [place] [address] Care Team Providers Care Technical Services Representative Name Role Phone Unavailable Primary Care Provider Rafaela e Encounter Details Date Type Department Care Team (Latest Contact Info) Description 03/07/2004 Inpatient Historical [facility] [place] [address] [place] [address] ACQ HEAD DEFORMITY OTHER SPEC (Primary Dx) Social History Tobacco Use Types Packs/Day Years Used Date Smoking Tobacco: Never Assessed Sex and Gender Information Value Date Recorded Sex Assigned at Not on file Legal Sex Male 3:05 AM PRESENTATION SPECIALIST Gender Identity Not on file Sexual Orientation Not on file documented as of this encounter Plan of Treatment Not on file documented as of this encounter Visit Diagnoses Diagnosis Other specified acquired deformity of head- Primary documented in this encounter
--- OUTSIDE RECORDS SUMMARY | 2024-07-02 09:14 | XMS_ITS | Clinical Summary ---
Author Organization [facility] [place] [facility] Address [address] [facility] [address] Attn: Epic Prelude ADT CRELASHANDA JOINER [address] Care Team Providers Care Ice Guard Skating Rink Name Role Phone Unavailable Primary Care Provider Unavailabl e Social History Tobacco Use Types Packs/Day Years Used Date Smoking Tobacco: Never Assessed Sex and Gender Information Value Date Recorded Sex Assigned at Not on file Legal Sex Male 3:05 AM INFECTION CONTROL SPECIALIST Gender Identity Not on file Sexual [...]
--- OUTSIDE RECORDS SUMMARY | 2024-07-02 09:14 | XMS_ITS | Encounter Summary ---
Author Organization [facility] Address 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
--- OUTSIDE RECORDS SUMMARY | 2024-07-02 09:14 | XMS_ITS | Clinical Summary ---
Author Organization [facility] [employer] Address [address] [place] [address] Care Team Providers Care Medical Physiologist Name Role Phone Steve Oquendo MD Primary Care Provider [phone] Source Comments [facility] [employer],non-owned Affiliates and Associated Physician Practices is amultiple site organization consisting of ambulatory clinics and hospital sitesin [place], [place], [place] and [place]. This disclosure is being madepursuant to the Care Everywhere program and may not contain all information available regarding this patient. Last updated 17.[facility] [employer] Allergies No known active allergies Immunizations Immunization Administration Dates Next Due INFLUENZA VACCINE, QUADR. (F LUZONE; FLULAVAL; FLUARIX; AFLURIA QUADRIVALENT; 6MO+), 0.5 ML (IIV4) 12/20/2018 TDAP (7yrs+) 12/20/2018 Social History Tobacco Use Types Packs/Day Years Used Date Smoking Tobacco: Never Assessed Sex and Gender Information Value Date Recorded Sex Assigned at Not on file Legal Sex Male 5:33 AM IT SERVICE DELIVERY MANAGER Gender Identity Male 12/20/2018 2:04 PM CDT Sexual Orientation Not on file Plan of Treatment Health Maintenance Due Date Last Done Comments LIPID TESTING 1981 HIV SCREENING 1996 HEPATITIS C SCREENING 12/23/1999 HEPATITIS B VACCINE (1 of 3 - 19+ 3-dose series) 2000 COVID-19 VACCINE (2023-2 5 season) 2023 DEPRESSION SCREENING 03/18/2024 INFLUENZA VACCINE (Season Ended) 2024 12/21/19 19 DTAP/TDAP/TD VACCINES (2 - T d or Tdap) 12/20/2028 12/20/2018 ZOSTER VACCINE (1 of 2) 12/28/2031 HIB VACCINE Aged Out No longer eligi ble based on patient's age to complete this topic HPV VACCINE Aged Out No longer eligi ble based on patient's age to complete this topic MENINGOCOCCAL (Group B) VACC INE SHARED DECISION-MAKING Aged Out No longer eligibl e based on patient's age to complete this topic MENINGOCOCCAL GROUPS A/C/Y/W VACCINE Aged Out No longer eligible b ased on patient's age to complete this topic PNEUMOCOCCAL VACCINE Aged Out No long er eligible based on patient's age to complete this topic Insurance [facility] Care Teams Medical Physiologist Relationship Specialty Start Date End Date Steve Oquendo MD [address] [place] [address] PCP - General Family Medicine 12/20/18
--- OUTSIDE RECORDS SUMMARY | 2024-07-02 09:14 | XMS_ITS ---
Author Organization [facility] [email or web address] Address [address] [place] [address] Care Team Providers Care Dials Inspector Name Role Phone Angelica Jaramillo DO Primary Care Provider Unavailab Radha Oswald Unavailable [phone] Allergies No Known Allergies REASON FOR VISIT 2 month F/U, Depression screening negative Medications Medication SIG (Take, Route, Frequency, Duration) [...] has it been since you last smoked? 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) Marriage and Sexuality What is your relationship status?: Are you sexually active?: No Do you use protection during sex?: No How many children do you have?: 1 Home and Environment Are there any guns present in your home?: No Advance Directive Do you have an advance directive?: No Do you have a medical power of admitted attorneys?: No Problems Problem Type SNOMED Code ICD Code Onset Dates Problem Status W/U Status Risk Notes Problem Insomnia disorder 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 disorder (99456709) Insomnia 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 disorder (F51.05) Active confirmed Problem Depressed bipolar I disorder in remission (02084657) Bipolar disorder, in partial remission, most recent episode depressed (F31.75) Active confirmed Vital Signs Blood pressure systolic 117 mm Hg 06/11/19 25 Blood pressure diastolic 76 mm Hg 025 Heart Rate 59 /min 06/10/2024 Height 72.00 in 06/10/2024 Weight 239 lbs 06/10/2024 BMI 32.41 kg/m2 06/10/2024 Height-cm 182.88 cm 06/10/2024 Weight-kg 108.41 kg 06/10/2024 Encounters Encounter Location Date Provider Diagnosis [facility] [address] [place] [address] 06/10/2024 Radha Salas Bipolar disorder, in partial remission, most recent episode depressed F31.75 ; Insomnia 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 disorder F51.05 ; Generalized anxiety disorder F41.1 ; History of alcohol abuse F10.11 ; Encounter for screening for cardiovascular disorders Z13.6 ; Encounter for screening for depression Z13.31 and Attention-deficit hyperactivity disorder, combined type F90.2 Assessments Encounter Date Diagnosis (ICD Code) Assessment Notes Treatment Notes Treatment Clinical Notes Section Notes 06/10/2024 Bipolar disorder, in partial remission, most [...] - Encourage continuing therapy sessions with Ekta Palu for addiction support - Reinforce importance of maintaining sobriety Follow-up in 8 weeks, sooner if concerns arise 06/10/2024 Insomnia 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 disorder [...] - Encourage continuing therapy sessions with Ekta Pual for addiction support - Reinforce importance of [...] 8 weeks, sooner if concerns arise 06/10/2024 History of alcohol abuse (ICD-10 - [...] 8 weeks, sooner if concerns arise 06/10/2024 Attention-deficit hyperactivity disorder, combined type (ICD-10 - [...] in 8 weeks, sooner if concerns arise Plan Of Treatment Medication Medication Name Sig Start Date Stop Date Notes traZODone HCl 50 MG 1-2 tablets at bedti me Orally Once a day for 30 days 06/10/2024 Vilazodone HCl 40 MG 1 tablet with food Oral Once a day Methylphenidate HCl ER (OSM) 36 MG 1 tablet in the morning Orally Once a day for 30 days 06/10/2024 07/10/2024 risperiDONE 4 MG 1 tablet Orally Once a day for 30 days Next Appt Details Provider Name:Radha Huang rubiomaren, 07/22/2024 01:15:00 PM, [address] [address] [address], [facility] [address], [place], [address], Progress Notes * JAMES VILLANUEVADOB:1 (43 yo M)Acc No.[id number]:06/10/2024 Patient: JAMES AMEZQUITA Provider: Mar Salas :1980 A ge:43 Y S ex:Male Date:06/10/2024 Address:[address] [place] [address], [id number] Pcp:Angelica Jaramillo DO Subjective: * Chief Complaints: * 1 . 2 month F/U. 2. Depression screening negative. * HPI: D epression Screening: CALI-7 (2018 Edition) F eeling nervous, anxious, or on edge N ot at all N ot being able to stop or control worrying?Not at all W orrying too much about different things N ot at all T rouble relaxing S everal days B eing so restless that it is hard to sit still N ot at all B ecoming easily annoyed or irritable S everal days F eeling afraid as if something awful might happen N ot at all I f you checked any problems, how difficult have they made it for you to do your work, take care of things at home, or get along with other people? N ot difficult at all [place]-Suicide Severity Rating Scale: Suicide Risk (CSRS-screener) i n the past one month Have you wished you were or wished you could go to sleep and not wake up? N o i n the past one month Have you actually had any thoughts of killing yourself? N o D epression screening: PHQ-9 L ittle interest or pleasure in doing things?Not at all F eeling down, depressed, or hopeless N ot at all T rouble falling or staying asleep, or sleeping too much N ot at all F eeling tired or having little energy N ot at all P oor appetite or overeating N ot at all F eeling bad about yourself or that you are a failure, or have let yourself or your family down N ot at all T rouble concentrating on things, such as reading the newspaper or watching television N ot at all M oving or speaking so slowly that other people could have noticed; or the opposite, being so fidgety or restless that you have been moving around a lot more than usual N ot at all T houghts that you would be better off or of hurting yourself in some way N ot at all T otal Score 0 Intervention D epression Screening Findings N egative S uicide Risk Assessment Performed _ * ROS: P erformance Met: N ormal blood pressure reading documented, follow-up not required ( G8783). * Medical History: A ttention deficit hyperactivity disorder, combined type, History of alcohol abuse, Past Psychiatric History: Anxiety Disorder,Bipolar Disorder. * Social History: T obacco Use: T obacco Control (Standard) W hen did you start smoking? 0 03/18/1997 W hen did you stop smoking? 0 03/18/2009 T obacco use: F ormer smoker H ow long has it been since you last smoked??Greater than 10 years M igrated Social History: M igrated Social History: Alcohol Intake: None 05/27/2023,Tobacco Years: Former smoker 05/27/2023. D rug/Alcohol: D rugs H ave you used drugs other than those for medical reasons in the past 12 months? N o AUDIT-C (Standard) D id you have a drink containing alcohol in the past year? Y es H ow often did you have six or more drinks on one occasion in the past year? L ess than monthly (1 point) H ow many drinks did you have on a typical day when you were drinking in the past year? 5 or 6 drinks (2 points) H ow often did you have a drink containing alcohol in the past year? 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 Safety issues A re there any firearms in the house? N o Advance Care Planning A re you your own decision-maker Y es D o you have Power of Civil Engineering Project Manager for Health or Medical? 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 * Medications: T aking Meloxicam 15 MG Tablet Oral , Taking risperiDONE 4 MG Tablet TAKE 1 TABLET BY MOUTH EVERY DAY FOR 30 DAYS , Taking Vilazodone HCl 40 MG Tablet 1 tablet with food Oral Once a day , Medication List reviewed and reconciled with the patient * Allergies: N .K.D.A. Objective: * Vitals: B P:117/76mm Hg, HR:59/min, Wt:239lbs, Wt-k.41 kg, Ht: 72.00 in, Ht-cm: 182.88 cm, BMI:32.41Index, Body Surface Area: 2.34. Assessment: * Assessment: 1. B ipolar disorder, in partial remission, most recent episode depressed - F31.75 (Primary)? 2. I nsomnia 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 disorder - F51.05 3 . G eneralized anxiety disorder - F41.1 4 . H istory of alcohol abuse - F10.11 5. E ncounter for screening for cardiovascular disorders - Z13.6 6 . E ncounter for screening for depression - Z13.31 7 . A ttention-deficit hyperactivity disorder, combined type - F90.2 Bipolar Disorder - Some depressive feelings when [...] in 8 weeks, sooner if concerns arise Plan: * Treatment: 2. I nsomnia 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 disorder Start traZODone HCl Tablet, 50 MG, 1-2 tablets at bedtime, Orally, Once a day As needed for sleep, 30 days, 60, Refills 1. 3. G eneralized anxiety disorder Continue Vilazodone HCl Tablet, 40 MG, 1 tablet with food, Oral, Once a day. 4. A ttention-deficit hyperactivity disorder, combined type Refill Methylphenidate HCl ER (OSM) Tablet Extended Release, 36 MG, 1 tablet in the morning, Orally, Once a day, 30 days, 30 Tablet, Refills 0. * Procedure Codes: G 8783 NORMAL BP READING DOC F/U NOT RQR, 66162 BEHAV ASSMT W/SCORE & DOCD/STAND INSTRUMENT, G8752 MOST RECENT SYSTOLIC BP < 140MM HG, G8754 MOST RECENT DIASTOLIC BP < 90MM HG * Billing Information: * Visit Code: * Procedure Codes: G8783 NORMAL BP READING DOC F/U NOT RQR. 58920 BEHAV ASSMT W/SCORE & DOCD/STAND INSTRUMENT. G8752 MOST RECENT SYSTOLIC BP < 140MM HG. G8754 MOST RECENT DIASTOLIC BP < 90MM HG. * Electronic signature of Filemon Salas on 07/02/2024 at 09:14 AM CDT Sign off status: Pending * Provider: Mar Salas Date: 0 06/10/2024 Generated for [employer] varela/Netta/Violetta on: 0 07/02/2024 09:14 AM CDT History and Physical Notes * HPI (History of Present Illness) Category Sub-Category Detail Notes Category Not es Depression screening PHQ-9 Little inte rest or pleasure in doing things: Not at all Feeling down, depressed, or hopeless: No t at all Trouble falling or staying asleep, or sl eeping too much: Not at all Feeling tired or having little energy: N [...] some way: Not at all Total Score: 0 Intervention Depression Screening Findings: N egative Suicide Risk Assessment Performed: ____ Depression Screening CALI-7 (2018 Edition) Feelin g nervous, anxious, or on edge: Not at all Not being able to stop or control worryi avery: Not at all Worrying too much about different things : Not at all Trouble relaxing: Several days Being so restless that it is hard to sit still: Not at all Becoming easily annoyed or irritable: Se veral days Feeling afraid as if something awful dora ht happen: Not at all If you checked any problems, how difficult have they made it for you to do your work, take care of things at home, or get along with other people?: Not difficult at all [place]-Suicide Severity Rating Scale Suicide Risk (CSRS-screener) in the past one month Have you wished you were or wished you could go to sleep and not wake up?: No in the past one month Have y ou actually had any thoughts of killing yourself?: No
[2024-07-02 12:55] LABS: Hematocrit 45.2 % (42.0-52.0); Hemoglobin 14.5 g/dL (14.0-18.0); Mean Corpuscular HGB Conc 32.1 g/dl (32-36); Mean Corpuscular Hemoglobin 29.5 pg (26-34); Mean Corpuscular Volume 92.1 fl (80-100); Platelet Count Result 252 k/mm3 (150-375); Red Blood Count 4.91 M/mm3 (4.6-6.20); Red Cell Distribution Width 11.9 % (11.5-14.5)
[2024-07-02 13:49] LABS: Alanine Aminotransferase 26 U/L (6-50); Albumin Level 4.1 g/dL (3.5-5.1); Alkaline Phosphatase 88 U/L (38-126); Anion Gap 4 mmol/L (4-12); Aspartate Amino Transferase 39 U/L (17-59); Bilirubin,Total 0.8 mg/dL (0.2-1.3); Blood Urea Nitrogen 8 mg/dL (9-20); Calcium 9.1 mg/dL (8.4-10.2); Carbon Dioxide 31 mmol/L (22-30); Chloride 102 mmol/L (98-107); Cholesterol 194 mg/dL (0-200); Estimated Glomerular Filt Rate > 60; Glucose 89 mg/dL (65-110); HDL Direct 44 mg/dL; Potassium 4.6 mmol/L (3.4-5.0); Sodium 137 mmol/L (137-145); Triglycerides 82 mg/dL (<150)
[2024-07-02 13:59] LABS: LDL Cholesterol Direct 110 mg/dL
== END 2024-07-02 08:53 | disposition home or self-care (01) ==
LOC: ANHGOSHLAB 08:54
PROVIDERS: PCP Family Medicine; Visit Provider Family Medicine
DX: E78.5 Hyperlipidemia, unspecified (principal); E66.9 Obesity, unspecified; Z79.899 Other long term (current) drug therapy
CPT/HCPCS: 36415; 80053; 80061; 84443; 85027

== ENCOUNTER 2025-01-01 09:12 | Outpatient (CLI) | payer BC, SELFPAY ==
--- OUTSIDE RECORDS SUMMARY | 2025-01-01 09:35 | XMS_ITS | Patient Health Record ---
Author Organization [facility] Address [address] [facility] [address] [place] [address] Care Team Providers Care Podiatry Assistant Name Role Phone Angelica Jaramillo DO Primary Care Provider Unavailab Radha Oswald Unavailable [phone] Whitney Bustamante Unavailable [phone] Allergies No Known Allergies Results Component Value [...] NEG 0 - 500 ng/ml Morphine (MOP 300/CBO8639) NEG 0 - 300 ng/ml Methadone (MTD) NEG 0 - 300 ng/ml Oxycodone NEG 0 - 300 ng/ml UDT Reviewed date:10/21/2024 09:57:29 PM Interpretation: Performing Lab: Notes/Report: THC N 0 - 50 ng/ml Cocaine N 0 - 300 ng/ml Amphetamine N 0 - 1000 ng/ml Buprenorphine (BUP) N 0 - 10 ng/ml Secobarbital (Bar) N 0 - 300 ng/ml Oxazepam (BZO) N 0 - 300 ng/ml 5-pafseexmjg-8,8-ytjugksa-2,3-diphenylpyrrolidine (KAREN P) N 0 - 300 ng/ml Methamphetamine (MET) N 0 - 1000 ng/ml Methylenedioxymethamphetamine (MDMA) N 0 - 500 ng/ml Morphine (MOP 300/[id number]) N 0 - 300 ng/ml Methadone (MTD) N 0 - 300 ng/ml Phencyclidine (PCP) N 0 - 25 ng/ml Nortriptyline (TCA) N 0 - 1000 ng/ml Oxycodone N 0 - 300 ng/ml Reason For Referral No Information Medications Medication SIG (Take, Route, Frequency, Duration) Notes Start Date End Date Status Methylphenidate HCl ER (CD) 30 MG Capsule Extended Release 1 capsule before breakfast in the morning Orally Once a day; Duration: 30 days 11/19/2024 Active Vilazodone HCl 40 MG Tablet 1 tablet wit h food Oral Once a day; Duration: 30 days Active risperiDONE 4 MG Tablet 1 tablet Orally Once a day; Duration: 30 days Active traZODone HCl 50 MG Tablet 1-2 tablets at bedtime Orally Once a day; Duration: 30 days As needed for sleep 06/10/2024 Active Meloxicam 15 MG Tablet Oral 08/02/2023 Active Social History Tobacco Use: Social History Observation Description Date Details (start date - stop date) Former Smoker 03/18/1997 - 03/18/2009 Sex Assigned At : Social History Observation Description Sex Assigned At Male Social History Miscellaneous: Social Info Question Answer Notes Advance Care Planning Are you your own decision-maker Yes Do you have Power of Cardiology Clinical Nurse Specialist for Health or [facility]? No Safety issues: Are there any firearms in the house? No Social History Social Info Question Answer Notes Household: Marital Status: Number of Adults in household: 2 Number of Children in Household: 1 Level of Education: Professional Schools/Masters /PhD Household: Social Info Question Answer Notes Household Marital status: Number of adults in household: 2 Number of children in household: 1 Level of education: professional schools/Masters /PhD Drug/Alcohol: Social Info Question Answer Notes Drugs Have you used drugs other than those for medical reasons in the past 12 months? No AUDIT-C (Standard) Did you have a drink containing alcohol in the past year? Yes How often did you have six or more drinks on one occasion in the past year? Less than monthly (1 point) How many drinks did you have on a typical day when you were drinking in the past year? 5 or 6 drinks (2 points) How often did you have a drink containing alcohol in the past year? Monthly or less (1 point) Tobacco Use: Social Info Question Answer Notes Tobacco Control (Standard) When did you start smoking? 03/18/1997 When did you stop smoking? 03/18/2009 Tobacco use: Former smoker How long has it been since you last smoked? 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) Marriage and Sexuality What is your relationship status?: Are you sexually active?: No Do you use protection during sex?: No How many children do you have?: 1 Home and Environment Are there any guns present in your home?: No Advance Directive Do you have an advance directive?: No Do you have a medical power of consumer attorney?: No Social History Substance Use Do [...] Master's degree (e.g., TAISHA, , Noemy, MEd, BOWLING FLOOR DESK CLERK, ISHMAEL) Are you currently employed?: Yes 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) Marriage and Sexuality What is your relationship status?: Are you sexually active?: No Do you use protection during sex?: No How many children do you have?: 1 Home and Environment Are there any guns present in your home?: No Advance Directive Do you have an advance directive?: No Do you have a medical power of consumer attorney?: No Social History Substance Use Do [...] received?: Master's degree (e.g., TAISHA, , Noemy, Stormy, BOWLING FLOOR DESK CLERK, ISHMAEL) Are you currently employed?: Yes 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) Marriage and Sexuality What is your relationship status?: Are you sexually active?: No Do you use protection during sex?: No How many children do you have?: 1 Home and Environment Are there any guns present in your home?: No Advance Directive Do you have an advance directive?: No Do you have a medical power of consumer attorney?: No Social History Substance Use Do [...] Master's degree (e.g., TAISHA, , Noemy, MEd, BOWLING FLOOR DESK CLERK, ISHMAEL) Are you currently employed?: Yes 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) Marriage and Sexuality What is your relationship status?: Are you sexually active?: No Do you use protection during sex?: No How many children do you have?: 1 Home and Environment Are there any guns present in your home?: No Advance Directive Do you have an advance directive?: No Do you have a medical power of consumer attorney?: No Social History Substance Use Do [...] Master's degree (e.g., TAISHA, MS, Noemy, MEd, BOWLING FLOOR DESK CLERK, ISHMAEL) Are you currently employed?: Yes 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) Marriage and Sexuality What is your relationship status?: Are you sexually active?: No Do you use protection during sex?: No How many children do you have?: 1 Home and Environment Are there any guns present in your home?: No Advance Directive Do you have an advance directive?: No Do you have a medical power of consumer attorney?: No Social History Substance Use Do [...] Master's degree (e.g., TAISHA, , Noemy, MEd, BOWLING FLOOR DESK CLERK, ISHMAEL) Are you currently employed?: Yes 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) Marriage and Sexuality What is your relationship status?: Are you sexually active?: No Do you use protection during sex?: No How many children do you have?: 1 Home and Environment Are there any guns present in your home?: No Advance Directive Do you have an advance directive?: No Do you have a medical power of consumer attorney?: No Social History Substance Use Do [...] Master's degree (e.g., TAISHA, MS, Noemy, MEd, BOWLING FLOOR DESK CLERK, ISHMAEL) Are you currently employed?: Yes 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) Marriage and Sexuality What is your relationship status?: Are you sexually active?: No Do you use protection during sex?: No How many children do you have?: 1 Home and Environment Are there any guns present in your home?: No Advance Directive Do you have an advance directive?: No Do you have a medical power of consumer attorney?: No Which illicit or recreationa l drugs have you used?: Marijuana, Extacy, Opium, Cocaine, Daja Problems Problem Type SNOMED Code ICD Code Onset Dates Problem Status W/U Status Risk Notes Problem Depressed bipolar I disorder in remission (01928973) Bipolar disorder, in partial remission, most recent episode depressed (F31.75) Active confirmed Problem Generalized anxiety disorder (46870697) Generalized anxiety disorder (F41.1) 08/02/19 Active confirmed Problem Attention deficit hyperactivity disorder, combined type (45181157) Attention-deficit hyperactivity disorder, combined type (F90.2) 08/02/19 Active confirmed Problem Bipolar disorder in remission (75525819) Bipolar disorder in remission (F31.70) Active confirmed Problem Insomnia disorder 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 disorder (48461438) Insomnia 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 disorder (F51.05) Active confirmed Problem Nondependent alcohol abuse in remission (765817582) History of alcohol abuse (F10.11) Active confirmed Vital Signs Heart Rate 78 /min 10/21/2024 Height-cm 182.88 cm 10/21/2024 Blood pressure diastolic 85 mm Hg 10/21/2024 Weight-kg 107.5 kg 10/21/2024 Height 72.00 in 10/21/2024 Blood pressure systolic 130 mm Hg 10/21/2024 Weight 237 lbs 10/21/2024 BMI 32.14 kg/m2 10/21/2024 Encounters Encounter Location Date Provider Diagnosis [facility] [address] [place] [address] 01/10/2024 Whitney Bustamante Attention-deficit hyperactivity disorder, combined type F90.2 ; Generalized anxiety disorder F41.1 ; Bipolar disorder, unspecified F31.9 and History of alcohol abuse F10.11 [facility] [address] [place] [address] 04/03/2024 Radha Salas Attention-deficit hyperactivity disorder, combined type F90.2 ; Bipolar disorder, unspecified F31.9 ; Generalized anxiety disorder F41.1 and History of alcohol abuse F10.11 [facility] [address] [place] [address] 06/10/2024 Radha Maritza Bipolar disorder, in partial remission, most recent episode depressed F31.75 ; Insomnia 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 disorder F51.05 ; Generalized anxiety disorder F41.1 ; History of alcohol abuse F10.11 ; Encounter for screening for cardiovascular disorders Z13.6 ; Encounter for screening for depression Z13.31 and Attention-deficit hyperactivity disorder, combined type F90.2 [facility] [address] [facility] [address] [place] [address] 07/22/2024 Radha Salas Attention-deficit hyperactivity disorder, combined type F90.2 ; Bipolar disorder, in partial remission, most recent episode depressed F31.75 ; History of alcohol abuse F10.11 ; Generalized anxiety disorder F41.1 ; Insomnia 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 disorder F51.05 ; Negative depression screening Z13.31 and Encounter for screening for cardiovascular disorders Z13.6 [place] [facility] [address] [facility] [address] [place] [address] 10/21/2024 Radha Salas Attention-deficit hyperactivity disorder, combined type F90.2 ; Bipolar disorder in remission F31.70 ; Generalized anxiety disorder F41.1 ; Insomnia 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 disorder F51.05 and History of alcohol abuse F10.11 [place] [address] [address] 06/05/2024 Radha Salas Generalized anxiety disorder F41.1 [place] [address] [facility] [address] [place] [address] 09/28/2024 Radha Salas [place] [address] [facility] [address] [place] [address] 09/30/2024 Radha Salas Attention-deficit hyperactivity disorder, combined type F90.2 [place] [address] [facility] [address] [place] [address] 11/19/2024 Radha Salas Attention-deficit hyperactivity disorder, combined type F90.2 and Bipolar disorder in remission F31.70 [place] [address] [facility] [address] [place] [address] 11/19/2024 Radha Salas Attention-deficit hyperactivity disorder, combined type F90.2 Assessments [...] avoid cannabis/alcohol UDS: neg, does not test methylphenidate, send for [...] most recent episode depressed (ICD-10 - F31.75) 04/03/2024 Attention-defici t hyperactivity disorder, combined type [...] in 8 weeks, sooner if concerns arise 07/22/2024 Bipolar disorder, in partial remission, most recent episode depressed (ICD-10 - F31.75) 07/22/2024 Attention-defici t hyperactivity disorder, combined type (ICD-10 - F90.2) 10/21/2024 Attention-defici t hyperactivity disorder, combined type (ICD-10 - F90.2) 10/21/2024 Bipolar disorder in remission (ICD-10 - F31.70) 09/30/2024 Attention-defici t hyperactivity disorder, combined type (ICD-10 - F90.2) 11/19/2024 Attention-defici t hyperactivity disorder, combined type (ICD-10 - F90.2) 11/19/2024 Attention-defici t hyperactivity disorder, combined type (ICD-10 - F90.2) 10/21/2024 Generalized anxiety disorder (ICD-10 - F41.1) 07/22/2024 History of alcohol abuse (ICD-10 - F10.11) 06/10/2024 Insomnia 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 disorder (ICD-10 - F51.05) 04/03/2024 Generalized anxiety disorder (ICD-10 - F41.1) [...] 06/10/2024 Generalized anxiety disorder (ICD-10 - F41.1) 07/22/2024 Generalized anxiety disorder (ICD-10 - F41.1) 11/19/2024 Bipolar disorder in remission (ICD-10 - F31.70) 10/21/2024 Insomnia 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 disorder (ICD-10 - F51.05) 10/21/2024 History of alcohol abuse (ICD-10 - F10.11) 06/10/2024 History of alcohol abuse (ICD-10 - F10.11) 07/22/2024 Insomnia 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 disorder (ICD-10 - F51.05) 01/10/2024 History of alcohol abuse (ICD-10 - F10.11) no usehx intermittent problematic userecommend continue to abstain from alcohol is attending [facility] Recovery meetings 06/10/2024 Encounter for screening for cardiovascular disorders (ICD-10 - Z13.6) 07/22/2024 Negative depression screening (ICD-10 - Z13.31) 07/22/2024 Encounter for screening for cardiovascular disorders (ICD-10 - Z13.6) 06/10/2024 Encounter for screening for depression (ICD-10 - Z13.31) 06/10/2024 Attention-defici t hyperactivity disorder, combined type (ICD-10 - F90.2) 06/10/2024 Johnathon Bee presents with ongoing ADHD, anxiety, and depression symptoms, reporting high stress levels, sleep disturbances, and medication refill needs. Attention Deficit Hyperactivity Disorder (ADHD) Assessment: Patient reports being out of methylphenidate, his prescribed ADHD medication. He confirms taking the medication first thing in the morning when available. The absence of this medication may be contributing to increased stress and anxiety levels. Plan: - Refill methylphenidate prescription (dose and frequency to be continued as previously prescribed) - Patient to continue taking medication early in the morning Anxiety and Depression Assessment: Patient reports high stress levels, particularly related to work. At the previous visit, an increase in depressive symptoms was noted, leading to an increase in Risperdal dosage. Current presentation suggests ongoing mood and anxiety concerns, potentially exacerbated by the lack of ADHD medication. Plan: - Continue current Risperdal regimen (dose adjustment from previous visit maintained) - Monitor for improvement in mood and anxiety symptoms - Follow up in 6 weeks to reassess mood and anxiety Insomnia Assessment: Patient reports significant sleep disturbances, including difficulty falling asleep (taking approximately 25 rotations in bed before sleep onset) and maintaining sleep (waking twice nightly for bathroom visits with 30-60 minutes to fall back asleep). Sleep duration is variable, either insufficient or excessive, but not consistently within the normal 7-hour range. Previous attempts with melatonin gummies have been ineffective. Plan: - Initiate trazodone 50-100 mg PO at bedtime for insomnia - Educated patient on trazodone: potential benefits for sleep and mood/anxiety, possible side effect of dry mouth - Follow up in 6 weeks to assess efficacy and tolerability of trazodone 07/22/2024 Johnathon Bee presents with ongoing work-related stress and sleep issues, currently managed with trazodone and Trintellix, and reports good control of anxiety symptoms. Insomnia Assessment: Patient reports improved sleep with trazodone, though still experiencing middle insomnia. He wakes up in the middle of the night but is able to fall back asleep within 30 minutes. Morning awakening remains challenging, requiring two alarms within 10 minutes. Patient admits to staying up late, which may contribute to difficulty waking. Plan: - Continue trazodone (dose not specified) - Educate on sleep hygiene, emphasizing consistent bedtime routine - Encourage earlier bedtime to improve morning awakening Work-related stress Assessment: Patient reports ongoing stress due to work, particularly related to production issues. This appears to be impacting his mood, though anxiety remains well-controlled. Plan: - Continue current medication regimen, including Trintellix (dose not specified) - Maintain therapy sessions, currently attending every 2 weeks - Offer option for earlier follow-up if stress becomes overwhelming Attention Deficit Hyperactivity Disorder (ADHD) Assessment: Patient requests refill of ADHD medication, which he takes Saturday through Saturday for work. Medication appears to be effective for managing symptoms during workdays. Plan: - Refill ADHD medication (specific medication and dose not mentioned) - Educate patient on inability to provide free refills due to Schedule II controlled substance classification - Continue current dosing schedule ( only) History of panic attack Assessment: Patient reports a single panic attack last year, which he initially mistook for a heart attack. No recurrence since then. Plan: - Monitor for recurrence of panic symptoms - Reinforce importance of seeking immediate medical attention if similar symptoms occur in the future 10/21/2024 Johnathon Bee, male, presents with stable mood and anxiety, reports improved sleep with trazodone, and requests adjustment to ADHD medication due to decreased efficacy. Attention Deficit Hyperactivity Disorder (ADHD)Assessment : Patient reports decreased efficacy of current ADHD medication (generic Concerta 36 mg). He expresses a desire for stronger effects without extending duration, as he only requires medication for the first half of the day into early afternoon, Saturday through Saturday. Current treatment is no longer providing noticeable effects.Plan:- Discontinue generic Concerta 36 mg- Start generic Methadate CD 30 mg PO daily - Designed for more immediate release in the morning- Provide 14-day supply to test efficacy- Patient to message provider via mattie to report medication effectiveness in 2 weeks and allow for dose adjustment if needed - Follow up in 3 months or sooner if needed based on medication response InsomniaAssessme nt: Patient reports improved sleep with current trazodone regimen. He no longer experiences mid-night awakenings. However, he mentions staying up too late, potentially related to a new daily painting habit for an hour before bed.Plan:- Continue trazodone 50 mg, 2 tablets at bedtime- Encourage maintaining a balanced sleep schedule while engaging in pre-bed activities Mood DisorderAssessme nt: Patient reports stable mood, denying feelings of depression, irritability, or suicidal ideation. He describes his mood as good and balanced.Plan: - Continue risperidone 4 mg at bedtime Anxiety DisorderAssessme nt: Patient denies current anxiety concerns.Plan:- Continue vilazodone 40 mg PO daily Medical Decision MakingJames Bee is a male patient with a history of ADHD, presenting for medication management. The patient reports good mood stability and denies suicidal ideation or anxiety concerns. Sleep issues are noted, with the patient staying up late due to renewed interest in painting. Trazodone has been effective in maintaining sleep throughout the night. The patient's current ADHD medication (generic Concerta 36 mg) is no longer providing noticeable effects. After discussing the patient's desire for stronger but not longer-lasting medication effects, a decision was made to trial (generic) Methadate CD 30 mg. This medication was chosen for its immediate release properties, which align with the patient's need for stronger effects during the first half of the day. A 14-day supply will be prescribed to assess efficacy, with instructions for the patient to provide feedback via messaging. Plan Of Treatment Next Appt Details Provider Name:Radha martinez, 01/13/2025 01:30:00 PM, [address] [address] [address], [place], [address], Insurance Providers Payer Name Payer Address Payer Phone Subscriber Number Group Number Insured Name Patient Relationship to Insured Coverage Start Date Coverage End Date [employer] [employer] [address] [place] [address] [id number] JAMES BEE Self - patient is the insured Medical (General) History Medical History History ICD Code Attention deficit hyperactivity disorder , combined type History of alcohol abuse Past Psychiatric History: Anxiety Disord er,Bipolar Disorder Surgical History Surgery Date(Month/Year) Other jaw 04/18/2002 Hospitalization History Reason Date(Month/Year) infection, right jaw abscess from prior screws 02/2024
--- OUTSIDE RECORDS SUMMARY | 2025-01-01 09:35 | XMS_ITS | Encounter Summary ---
Author Organization [email or web address] Address 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
--- OUTSIDE RECORDS SUMMARY | 2025-01-01 09:35 | XMS_ITS | Clinical Summary ---
Author Organization [facility] Address [address] [place] [address] Care Team Providers Care Doorkeeper Name Role Phone Steve Oquendo MD Primary Care Provider [phone] Source Comments [facility],non-owned Affiliates and Associated Physician Practices is amultiple site organization consisting of ambulatory clinics and hospital sitesin [place], [place] and [place]. This disclosure is being madepursuant to the Care Everywhere program and may not contain all information available regarding this patient. Last updated 17.[facility] Allergies No known active allergies Immunizations Immunization Administration Dates Next Due INFLUENZA VACCINE, QUADR. 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 Gender Identity Male 12/20/2018 2:04 PM CDT Sexual Orientation Not on file Plan of Treatment Health Maintenance Due Date Last Done Comments LIPID TESTING 1981 HIV SCREENING 1996 HEPATITIS C SCREENING 12/23/1999 HEPATITIS B VACCINE (1 of 3 - 19+ 3-dose series) 2000 HPV VACCINE (1 - 3-dose SCDM series) 2008 DEPRESSION SCREENING 03/18/2024 COVID-19 VACCINE (1 - 2023-2 5 season) 2024 INFLUENZA VACCINE (#1) 2024 12/20/2018 DTAP/TDAP/TD VACCINES (2 - T d or [...] patient's age to complete this topic Insurance [facility] Care Teams Doorkeeper Relationship Specialty Start Date End Date Steve Oquendo MD [address] [place] [address] PCP - General Family Medicine 12/20/18
--- OUTSIDE RECORDS SUMMARY | 2025-01-01 09:35 | XMS_ITS | Encounter Summary ---
Author Organization [facility] Address 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
--- OUTSIDE RECORDS SUMMARY | 2025-01-01 09:35 | XMS_ITS | Clinical Summary ---
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
--- OUTSIDE RECORDS SUMMARY | 2025-01-01 09:35 | XMS_ITS | Clinical Summary ---
Author Organization [facility] Address [address] [place] [address] Care Team Providers Care Peat Shredder Tender Name Role Phone Angelica Jaramillo DO Primary Care Provider [phone] Allergies No known active allergies Medications risperiDONE (RisperDAL) 3 mg tabletIndications :mood Take 1 tablet (3 mg total) by mouth nightly Active vilazodone (VIIBRYD) 40 mg tabletIndications :major depressive disorder Take 1 tablet (40 mg total) by mouth skid wrapper before breakfast Active methylphenidate ER (CONCERTA) 27 [...] Deficiency Prevention Take 1 tablet by mouth skid wrapper before breakfast Active chlorhexidine (PERIDEX) 0.12 % [...] 03/18/2024 Assessment & Plan (03/20/2024 1:08 PM QUALITY AUDITOR): Presented to [facility] with odynophagia, imaging there showed submandibular abscess and transferred to [facility] for ENT evaluation. Now s/p drainage [...] 03/18/2024 Assessment & Plan (03/18/2024 7:35 AM QUALITY AUDITOR): - Continue Viirobert buenoe Abscess 03/17/2024 Immunizations Immunization Administration Dates Next [...] on file Legal Sex Male 5:34 PM QUALITY AUDITOR Gender Identity Not on file Sexual Orientation Not on file Obstetrics History Last Filed Vital Signs Vital Sign Reading Time Taken Comments Blood Pressure 134/89 05/19/2024 2:53 PM QUALITY AUDITOR Pulse 69 05/19/2024 2:53 PM QUALITY AUDITOR Temperature 36.6 C (97.9 F) 05/19/2024 2:53 PM QUALITY AUDITOR Respiratory Rate 16 05/06/2024 3:50 PM QUALITY AUDITOR Oxygen Saturation 98% 05/19/2024 2:53 PM QUALITY AUDITOR Inhaled Oxygen Concentration - - Weight 107.5 kg (237 lb) 05/19/2024 2:53 PM QUALITY AUDITOR Height 182.9 cm (6' 0.01) 05/19/2024 2:53 PM CS T Body Mass Index 32.14 05/19/2024 2:53 PM QUALITY AUDITOR Plan of Treatment Health Maintenance Due Date Last Done Comments Depression Screening 1981 Hepatitis C Screening 1981 Varicella Vaccines (1 of 2 - 13+ 2-dose series) 1994 Hepatitis B Screening 12/28/1999 Regular Well Visit/Exam 18-64 12/28/1999 HPV Vaccines (1 - 3-dose SCD M series) 2008 Influenza Vaccine (#1) 2024 5, 12/20/2018 DTaP/Tdap/Td Vaccine (2 - Td or Tdap) 12/20/2028 12/20/2018 Pneumococcal vaccine <65 Aged Out No longer eligible based on patient's age to complete this topic Insurance [employer] [place] Advance Directives For more information, please contact: [phone] * Full Code (Latest Code Status on File) Date Activated Date Inactivated Comments 03/18/2024 8:45 AM 03/20/2024 6:10 PM Care Teams Peat Shredder Tender Relationship Specialty Start Date End Date Angelica Jaramillo DO PCP - General Family Medicine 04/29/24
[2025-01-01 13:25] LABS: Free T3 4.47 pg/mL (2.71-6.16); Free T4 Free Thyroxine 1.13 ng/dL (0.78-2.19)
[2025-01-01 13:39] LABS: Thyroid Stimulating Hormone Reflex 2.330 uIU/mL (0.465-4.68)
[2025-01-05 10:09] LABS: Free Testosterone (Direct) 11.7 pg/mL (6.8-21.5)
== END 2025-01-01 09:13 | disposition home or self-care (01) ==
LOC: ANHGOSHLAB 09:13
PROVIDERS: PCP Family Medicine; Visit Provider Family Medicine
DX: F41.9 Anxiety disorder, unspecified (principal); E66.9 Obesity, unspecified; R68.82 Decreased libido; Z79.899 Other long term (current) drug therapy
CPT/HCPCS: 36415; 84402; 84403; 84439; 84443; 84481